=== PATIENT | male | born 1985 | race Caucasian/White ===

== ENCOUNTER 2016-10-09 22:32 | Inpatient (IN) | payer MEDICARE, OTHER ==
--- NOTE | ~2016-10-09 | DS ---
Unit #: [id number] #: [id number] Patient: NATHALY IVERSON [id number] [address] [address] [id number] I MR#: [id number] NAME: NATHALY IVERSON ROOM: 201 Age: 30 Sex: M Admission Date: 10/10/2016 : 1985 Discharge Date: 10/10/2016 Attending Physician: Iza Kimble M.D. Primary Care Physician: Primary Care Physician No DISCHARGE SUMMARY DISCHARGE DIAGNOSES 1. Type 1 diabetes, uncontrolled likely due to noncompliance, but the patient states that he ran out of insulin 3 days prior to admission. The patient's A1c reveals to be 11.8. 2. Suicidal ideation, was discharged to [facility] for continuing care. 3. Polysubstance abuse namely heroin, as well as alcohol. 4. History of hepatitis C. CONSULTANTS Dr. Clements and SANDRA. PROCEDURES None. DIAGNOSTIC STUDIES IMAGING STUDIES: None. LABORATORY RESULTS: On the day of discharge, the patient's lab includes a BMP; glucose of 174, BUN 13, creatinine 0.7. Sodium 133, potassium 3.4, chloride 102, CO2 of 26, calcium 8.1, magnesium 1.8, total protein 7.1, albumin 3.6, total bilirubin 1.1, AST 77, ALT 82, alkaline phosphatase 125. Alcohol was undetectable on admission. CBC with WBC of 5.6, RBC of 4.57, hemoglobin was 12.3, hematocrit was 37.9, MCV was 83, MCH was 27, MCHC was 32.5, RDW was 14, platelets was 192, MVP was 8.8. HOSPITAL COURSE The patient is a 30-year-old man with past medical history of type 1 diabetes, heroin abuse, suicidal ideation and attempt 2 years ago, as well as peripheral neuropathy, hepatitis C, who presents to [facility] after he ran out of insulin about 3 days prior to admission. He was brought to the emergency department later evening with a serum glucose of 480, was given 2 L of saline. The patient does admit to having suicidal ideation. The patient states that he administers insulin daily and he tells me that he use Levemir, Lantus 40 units b.i.d. as well as sliding scale insulin prior to meal. The patient tells me that he has lost his daughter 2 years ago, had an attempt of suicide at that time and tries to self-medicate with drugs and alcohol. At this time, he denies homicidal ideation, but admits to suicidal ideation, had no plan. The following day, the patient was given 15 units of subcutaneous Levemir. The following day, his serum glucose had slowly reduced to 200. Fasting glucose was 50 units. At last hospitalization, when the patient was admitted with uncontrolled diabetes, Dr. Roblero of Endocrinology was Unit #: [id number] #: [id number] Patient: NATHALY IVERSON. At that time, the patient was receiving long-acting insulin with Lantus 15 units subcutaneously b.i.d. and a short-acting insulin with 2 units with meals and half of a sliding scale insulin. The patient's blood sugars appear to have been stable at that time. Therefore, I thought that it was a good idea for the patient to be discharged with the same recommendations long-acting of Lantus 15 units subcutaneously b.i.d., 5 units of insulin short-acting NovoLog with meals as well as a sliding scale insulin and the patient was seen in consultation with Dr. Clements as well as AP was asked to evaluate the patient for admission there for his continuing suicidal ideation. The patient was placed on 72-hour hold due to suicidal ideation and the patient was assessed and accepted in [facility]. Discharge diet and discharge condition is stable. DISCHARGE MEDICATIONS Include Celexa 20 mg orally daily, NovoLog 5 units subcutaneously with meals, as well as low-dose sliding scale insulin prior to meals and at bedtime, multivitamin one tablet orally daily, thiamine 200 mg orally daily, folic acid 1 mg orally daily, Neurontin 600 mg every 6 hours as needed for pain, Lantus 15 units subcutaneously b.i.d. Dictated by... Briana Goncalves PA-C for Felice Mccollum/shiela TD: 10/12/2016 09:40 JOB #: [id number] DISCHARGE SUMMARY Page 1 of 1 X X DISCHARGE SUMMARY
--- NOTE | ~2016-10-09 | HP ---
Unit #: [id number] #: [id number] Patient: NATHALY IVERSON [id number] [address] [address] [id number] I MR#: [id number] NAME: NATHALY IVERSON ROOM: 51761 Age: 30 Sex: M Admission Date: 10/10/2016 : 1985 Attending Physician: Colette Marcial M.D. Primary Care Physician: No Primary Care Physician HISTORY AND PHYSICAL REVISED REPORT CHIEF COMPLAINT Uncontrolled type 1 diabetes mellitus, heroin abuse, and suicidal ideation. History this 30-year-old type 1 diabetic male who abuses heroin with history of peripheral neuropathy, and hepatitis C, is admitted for uncontrolled diabetes. Patient states that he ran out of his insulin about 2 1/2 days ago. He was brought to this emergency department late last evening, with a serum glucose of 480. He was bolused with 2 L of saline. He is a very poor historian as he drifts off to sleep and I have to prompt him several times to answer my questions. He admits to suicidal ideation, but without a plan. A sitter currently is in the room. States that he injects insulin on a daily basis using clean needles. PAST MEDICAL HISTORY 1. Type 1 diabetes mellitus since age 2, associated with peripheral neuropathy. 2. Hepatitis C positive. 3. IV heroin abuse with negative HIV testing last summer. 4. Admission 08/24/2016 for diabetic ketoacidosis. 5. Appendectomy. ALLERGIES No known drug allergies. HOME MEDICATIONS Patient states that he injects Lantus 40 units subcu b.i.d. along with sliding scale Humalog. When he was last admitted to this facility in 08/2016, his insulin at that time was changed to Levemir 15 units subcu q.h.s. and NovoLog 5 units t.i.d. with meals. FAMILY HISTORY Diabetes mellitus. SOCIAL HISTORY The patient is homeless. He injects heroin using clean needles. He smokes 2 packs per day of tobacco, and does not drink alcohol. Occasionally uses other substances including methamphetamines. REVIEW OF SYSTEMS Impossible to obtain as patient is somnolent and I have to arouse him several times. Unit #: [id number] #: [id number] Patient: NATHALY IVERSON PHYSICAL EXAMINATION GENERAL: Thin 39-year-old unkempt appearing male currently in no acute distress. VITAL SIGNS: Temperature 98.2, pulse 102, respirations 12, blood pressure 128/71, O2 saturations 98% on room air. HEENT: Eyes - PERRLA. Extraocular muscles are intact. Pharynx is benign. NECK: Supple without adenopathy or thyromegaly. CHEST: Clear. CARDIAC: Normal S1 and S2 without S3, S4 or murmur. ABDOMEN: Bowel sounds are present. No hepatosplenomegaly, tenderness, or masses. EXTREMITIES: Without edema. Pedal pulses are present. SKIN: Reveals various superficial wounds and excoriations. Multiple tattoos. No abscesses that I can see. Patient does have track santana over his upper extremities. No splinter hemorrhages over the fingernail beds. NEUROLOGIC: Patient is somnolent but arousable. His cranial nerves are intact. Equal strength throughout. DIAGNOSTIC STUDIES ADMISSION LABS: Hematocrit is 36.5, normal white count and platelet count. SMA 12 - glucose is 480, sodium 127, potassium 3.4, chloride 90, AST 77, ALT 82, alk phos 125. BHOB 0.60. Alcohol negative. Urine tox screen positive for benzos, amphetamines, marijuana, opiates. Urinalysis - trace protein, positive glucose without significant white or red cells. ASSESSMENT 1. Uncontrolled type 1 diabetes mellitus. Patient ran out of his insulin. 2. Polysubstance abuse but mainly heroin. 3. Suicidal ideation. 4. Hepatitis C. PLANS 1. IV fluids and glucose control. 2. Check hemoglobin A1c. 3. Medications for heroin withdrawal. 4. 72 hours hold with one-to-one sitter. 5. Recheck labs in the morning. 6. [facility] to consult in the morning. 7. Bactroban to various wounds. 1. Dictated by Felice Abad/elizabeth TD: 10/10/2016 06:30 JOB #: [id number] CC: Delmy/invision Please Delete Unit #: [id number] #: [id number] Patient: NATHALY IVERSON HISTORY AND PHYSICAL Page 1 of 1 X Colette Marcial MD HISTORY AND PHYSICAL
[~2016-10-09 22:32] MED LIST: ACETAMINOPHEN PO; ACETAMINOPHEN325 MG PO; ADDERALL XR10 MG PO; AL-MAG HYDROX-S30 M1 PO; DOXEPIN HCL25 MG PO; FLEXERIL10 MG PO; HUMALOG100 U/M1; HUMALOG100 U/M2 SUBQ; HUMALOG100 U/ML; HUMALOG100 U/ML SUBQ; HYDROCODON-ACE1 EACH PO; KLONOPIN0.5 MG PO; KLONOPIN1 MG PO; LANTUS100 U/ML; LANTUS100 U/ML SUBQ; LANTUS100 UNITS/ SUBQ; LEVEMIR100 UNITS/ SUBQ; LORTAB 5/500 TA1 TA1 PO; MOTRIN400 M1 PO; NEURONTIN300 MG PO; NEURONTIN800 MG PO; NO MEDICATIONS; NOVOLOG100 U/ML; NOVOLOG100 U/ML SUBQ; ORUDIS75 M1 DOB; ORUDIS75 M1 PO; REQUIP2 MG PO; TESSALON PERLE100 M1 PO; THERAPEUTIC FOR1 TA1 PO; TYLENOL #3 PO; ULTRAM PO; ZOFRAN ODT4 MG PO
[2016-10-09 22:55] LABS: BASOPHIL% 0.3 % (0-2.5); EOSINOPHIL# 0.1 X10e3 (0-0.7); EOSINOPHIL% 0.9 % (0.0-7.0); HEMATOCRIT 36.5 % (38.0-50.0); HEMOGLOBIN 11.7 gm/dL (13.0-16.0); LYMPHOCYTE# 1.6 X10e3 (1.0-3.5); LYMPHOCYTE% 28.6 % (17.0-45.0); MEAN CELL VOLUME 84.7 FL (83-96); MEAN CORPUSCULAR HEMOGLOBIN 27.1 PG (28-34); MEAN PLATELET VOLUME 9.2 FL (6.5-11.5); MONOCYTE# 0.5 X10e3 (0-1.0); MONOCYTE% 8.4 % (3.0-12.0); NEUTROPHIL# 3.5 X10e3 (1.5-7.1); NEUTROPHIL% 61.8 % (40-75); PLATELET COUNT 188 X10e3 (140-420); RED BLOOD COUNT 4.31 X10e (3.90-5.60); WHITE BLOOD COUNT 5.6 X10e3 (4.0-10.5)
[2016-10-09 22:56] LABS: DIFF IND NO
[2016-10-09 23:22] LABS: ALBUMIN SERUM 3.6 g/dL (3.5-5.0); ALCOHOL BLOOD <5 mg/dL (0); ALKALINE PHOSPHATASE 125 U/L (32-92); ALT (SGPT) 82 U/L (10-40); AST (SGOT) 77 U/L (10-42); BILIRUBIN, DIRECT 0.2 mg/dL (0.0-0.2); BILIRUBIN,INDIRECT 0.9 mg/dL (0.0-0.9); BILIRUBIN,TOTAL 1.1 mg/dL (0.2-2.0); BLOOD UREA NITROGEN 19 mg/dL (9-23); CALCIUM SERUM 8.5 mg/dL (8.4-10.2); CARBON DIOXIDE 27 mmol/L (22-31); CHLORIDE 90 mmol/L (100-111); GLOM FILT RATE Estimated ABOVE60 mL/min (>60); GLUCOSE FASTING 480 mg/dL (70-110); POTASSIUM 3.4 mmol/L (3.5-5.1); PROTEIN TOTAL SERUM 7.1 g/dL (6.0-8.3); SODIUM 127 mmol/L (135-145)
[2016-10-09] MEDS ORDERED: IBUPROFEN800 MG PO (23:49)
[2016-10-10 00:51] LABS: URINE SOURCE CLEAN CATCH
[2016-10-10 00:57] LABS: URINE APPEARANCE CLEAR; URINE BILIRUBIN NEG (NEG); URINE BLOOD NEG (NEG); URINE COLOR YELLOW; URINE GLUCOSE >1000 MG/DL (NEG); URINE KETONE TRACE (NEG); URINE LEUKOCYTE ESTERASE NEG (NEG); URINE NITRATE NEG (NEG); URINE PH 5.5 (5-8); URINE PROTEIN TRACE (NEG); URINE SPECIFIC GRAVITY 1.024 (1.003-1.035)
[2016-10-10 01:02] LABS: CULTURE INDICATED? NO
[2016-10-10 01:09] LABS: AMPHETAMINE POS (NEG); BARBITURATES NEG (NEG); BENZODIAZEPINES POS (NEG); COCAINE NEG (NEG); MARIJUANA POS (NEG); OPIATES POS (NEG); TRICYCLIC ANTIDEPRESSANTS NEG (NEG); U METHADONE NEG (NEG)
[2016-10-10 05:49] LABS: BASOPHIL% 0.4 % (0-2.5); EOSINOPHIL# 0.1 X10e3 (0-0.7); EOSINOPHIL% 2.2 % (0.0-7.0); HEMATOCRIT 37.9 % (38.0-50.0); HEMOGLOBIN 12.3 gm/dL (13.0-16.0); LYMPHOCYTE# 2.3 X10e3 (1.0-3.5); LYMPHOCYTE% 41.6 % (17.0-45.0); MEAN CORPUSCULAR HGB CONC 32.5 g/dL (30-36); MEAN PLATELET VOLUME 8.8 FL (6.5-11.5); MONOCYTE# 0.5 X10e3 (0-1.0); MONOCYTE% 9.3 % (3.0-12.0); NEUTROPHIL# 2.6 X10e3 (1.5-7.1); NEUTROPHIL% 46.5 % (40-75); PLATELET COUNT 192 X10e3 (140-420); RED BLOOD COUNT 4.57 X10e (3.90-5.60); WHITE BLOOD COUNT 5.6 X10e3 (4.0-10.5)
[2016-10-10 05:57] LABS: DIFF IND NO
[2016-10-10 06:14] LABS: BLOOD UREA NITROGEN 13 mg/dL (9-23); BUN/CREATININE RATIO 18.57; CALCIUM SERUM 8.1 mg/dL (8.4-10.2); CARBON DIOXIDE 26 mmol/L (22-31); CHLORIDE 102 mmol/L (100-111); CREATININE SERUM 0.7 mg/dL (0.6-1.4); GLOM FILT RATE Estimated ABOVE60 mL/min (>60); GLUCOSE FASTING 174 mg/dL (70-110); MAGNESIUM 1.8 mg/dL (1.6-3.0); POTASSIUM 3.4 mmol/L (3.5-5.1); SODIUM 133 mmol/L (135-145)
== END 2016-10-10 19:25 | DRG 638 ==
LOC: CED 22:32 → CEDOF 10-10 01:40 → C2A 10-10 12:06
PROVIDERS: Emergency Medicine; Internal Medicine
DX: E10.65 Type 1 diabetes mellitus with hyperglycemia (principal); R45.851 Suicidal ideations; E10.42 Type 1 diabetes mellitus with diabetic polyneuropathy; Z79.4 Long term (current) use of insulin; F11.10 Opioid abuse, uncomplicated; B19.20 Unspecified viral hepatitis C without hepatic coma; F17.210 Nicotine dependence, cigarettes, uncomplicated; F15.90 Other stimulant use, unspecified, uncomplicated; F32.9 Major depressive disorder, single episode, unspecified; J44.9 Chronic obstructive pulmonary disease, unspecified; Z91.14 Patient's other noncompliance with medication regimen; Z59.0 Homelessness
CPT/HCPCS: 36415; 80048; 80076; 80307; 81003; 82010; 82947; 83036; 83735; 85025; 96360; 99285; G0480; J1815

== ENCOUNTER 2016-10-10 20:27 | Inpatient (IN) | payer MEDICARE, OTHER ==
--- NOTE | ~2016-10-10 | PN ---
Unit #: [id number] #: [id number] Patient: NATHALY JOHNSON [id number] [facility] [address] [place] [address] [id number] I MR#: [id number] NAME: NATHALY JOHNSON ROOM: [facility] Age: 30 Sex: M Admission Date: 10/10/2016 : 1985 Attending Physician: Gela Saunders M.D. Admitting Physician: Gela Saunders M.D. Primary Care Physician: Primary Care Physician Blanca PENN PROGRESS NOTES DATE OF SERVICE: 10/16/2016 SUBJECTIVE Mr. Johnson is a 30-year-old white male, who was seen today and chart was reviewed, and case was discussed with the staff. He reports doing much better, appears to be coming out of the detox without any complications. He was polite and pleasant, interacting, and socializing and will be able to go to rehab level of care tomorrow. MENTAL STATUS EXAMINATION Young white male, who was casually dressed with fair personal hygiene, appears to be in no acute distress or discomfort. He was awake and alert on interaction with intact orientation. His mood was anxious with a congruent affect. He denies any suicidal or homicidal ideation and also denies any auditory or visual hallucinations. His insight and judgment remain slightly impaired. TREATMENT PLAN 1. We will continue on his current medications treatment protocol. We will monitor response and make further adjustments as needed. 2. We will continue to follow up. Dictated by... Felice Del Angel/shiela TD: 10/18/2016 05:56 JOB #: [id number] [facility] PROGRESS NOTES Page 1 of 1 X Gela Saunders MD PROGRESS NOTE
--- NOTE | ~2016-10-10 | PN ---
Unit #: [id number] #: [id number] Patient: NATHALY JOHNSON [id number] [facility] [address] [place] [address] [id number] I MR#: [id number] NAME: NATHALY JOHNSON ROOM: [facility] Age: 30 Sex: M Admission Date: 10/10/2016 : 1985 Attending Physician: Gela Saunders M.D. Admitting Physician: Felice Del Angel PROGRESS NOTES DATE OF SERVICE: 10/14/2016 SUBJECTIVE Mr. Johnson is a 30-year-old white male with substance abuse and mood disorder, who was seen today and chart was reviewed, and case was discussed with the staff. He still has been detoxing. His blood pressure was high along with an elevated heart rate, and his Ativan has been tapered off, he still has been receiving it and actually he has been asking for the dosage to be increased again. Meanwhile, he has been compliant with treatment recommendations. MENTAL STATUS EXAMINATION Young white male, who was casually dressed with fair personal hygiene, appears to be in no acute distress or discomfort. He was awake and alert with intact orientation. His mood was anxious with a congruent affect. He denies any suicidal or homicidal ideations. His insight and judgment remain slightly impaired. TREATMENT PLAN 1. We will continue him on his current medications and treatment protocol. We will monitor his response and make further adjustments as needed. 2. We will continue to follow up. Dictated by... Felice Del Angel/shiela TD: 10/14/2016 09:00 JOB #: [id number] Unit #: [id number] #: [id number] Patient: NATHALY JOHNSON PROGRESS NOTES Page 1 of 1 X Gela Saunders MD PROGRESS NOTE
--- NOTE | ~2016-10-10 | PN ---
Unit #: [id number] #: [id number] Patient: NATHALY JOHNSON [id number] [facility] [address] [place] [address] [id number] I MR#: [id number] NAME: NATHALY JOHNSON ROOM: [facility] Age: 30 Sex: M Admission Date: 10/10/2016 : 1985 Attending Physician: Gela Saunders M.D. Admitting Physician: Gela Saunders M.D. Primary Care Physician: Primary Care Physician Blanca PENN PROGRESS NOTES DATE 10/15/2016 DISCUSSION Mr. Johnson is a 30-year-old white male who was seen today and chart was reviewed. His case was discussed with the staff. He appears to be doing fairly well and has been able to come out of his room and socialize and interact and go to therapy. He states that he is planning to go to [facility] for chemical dependency rehab level of care. His blood pressure however was still high as of yesterday and this morning and he was doing his Ativan dosage is being tapered down. He still has been needing some dosage to keep his detox symptoms at bay. Meanwhile, he has not shown any agitation or aggression and has been rather cooperative with treatment recommendation and appears to be showing significant improvement in his mood and behavior. MENTAL STATUS EXAMINATION Young white male, who was casually dressed with fair personal hygiene, appears to be in no acute distress or discomfort. He was awake and alert on interaction with intact orientation. His mood was anxious with a congruent affect. He denies any suicidal or homicidal ideations and also denies any auditory or visual hallucinations. His insight and judgment remain slightly impaired. TREATMENT PLAN 1. We will continue him on his current medications and treatment protocol. We will monitor his response and we will make further adjustments as needed. 2. We will continue to follow up. Dictated by... Gela Saunders M.D. IAA/mamie TD: 10/16/2016 08:14 JOB #: [id number] Unit #: [id number] #: [id number] Patient: NATHALY JOHNSON PROGRESS NOTES Page 1 of 1 X Chip,Gela ZUNIGA X PROGRESS NOTE
--- NOTE | ~2016-10-10 | CO ---
Unit #: [id number] #: [id number] Patient: NATHALY IVERSON [id number] [place] [address] [id number] I MR#: [id number] NAME: NATHALY IVERSON ROOM: [facility] Age: 30 Sex: M Admission Date: 10/10/2016 : 1985 Attending Physician: Gela Saunders M.D. Primary Care Physician: Primary Care Physician No Consultation Date: 10/11/2016 CONSULTATION REPORT ROSEY Trujillo is a 30-year-old with history of insulin-dependent diabetes mellitus. He is noncompliant with most if not all of his medications. He was recently admitted to [facility], where he was treated for his uncontrolled diabetes. H and P from [facility] dated 10/10/2016 was reviewed. We will continue Levemir at 18 units q.h.s., NovoLog sliding scale. No concentrated sweet diet and Accu-Cheks a.c. and h.s. Levemir will be adjusted accordingly. Dictated by... Keeley Chau P.A.-C. for Felice Mccollum/shiela TD: 10/13/2016 03:26 JOB #: [id number] CONSULTATION REPORT Page 1 of 1 X Keeley Chau CONSULTATION REPORT
--- NOTE | ~2016-10-10 | PN ---
Unit #: [id number] #: [id number] Patient: NATHALY JOHNSON [id number] [facility] [address] [place] [address] [id number] I MR#: [id number] NAME: NATHALY JOHNSON ROOM: [facility] Age: 30 Sex: M Admission Date: 10/10/2016 : 1985 Attending Physician: Gela Saunders M.D. Admitting Physician: Gela Saunders M.D. Primary Care Physician: Primary Care Physician Blacna DE [place] NOTES DATE OF SERVICE 10/12/2016 DISCUSSION Mr. Johnson is a 30-year-old white male with mood disorder and substance abuse who was seen today. Chart was reviewed and case was discussed with the staff. He was seen to be anxious, restless, withdrawn, unkempt, disheveled, and disorganized, and in distress and discomfort as he has been complaining of pain all over his body and has sores and skin lesions all over his forehead and his arms. He has been picking on himself and has been complaining of pain as well as being in distress and discomfort. He has been compliant with the treatment recommendations and has been taking the medications and tolerating them fairly well with no reported side effects. MENTAL STATUS EXAMINATION Young white male who is casually dressed with marginal personal hygiene. His mood is anxious with congruent affect. His speech is slow and restricted in content. His thought processes were disorganized with some looseness of associations and flight of ideas and suicidal ideations. His insight and judgment remain significantly impaired. TREATMENT PLAN 1. We will continue him on his current medications and treatment protocol. We will monitor his response and make further adjustments as needed. 2. We will continue to follow up. Dictated by... Felice Del Angel/leo TD: 10/12/2016 10:08 JOB #: [id number] Unit #: [id number] #: [id number] Patient: NATHALY JOHNSON PROGRESS NOTES Page 1 of 1 X Gela Saunders MD X PROGRESS NOTE
--- NOTE | ~2016-10-10 | HP ---
Unit #: [id number] #: [id number] Patient: RONNIE IVERSON [id number] [facility] [address] [place] [address] [id number] I MR#: [id number] NAME: RONNIE IVERSON ROOM: [facility] Age: 30 Sex: M Admission Date: 10/10/2016 : 1985 Attending Physician: Gela Saunders M.D. Admitting Physician: Gela Saunders M.D. Primary Care Physician: Primary Care Physician No HISTORY AND PHYSICAL Ronnie is a 30 year old admitted to [facility] because of his continued drug use. He was recently admitted and discharged from [facility] where he was treated for his uncontrolled type 1 diabetes. Patient was seen and H and P from [facility] dated 10/10/16 was reviewed. This is current. No changes. Please see H and P dated 10/10/16. Dictated by... Liz HorowitzANeelima. for Felice Mccollum/ofelia TD: 10/11/2016 19:53 JOB #: [id number] HISTORY AND PHYSICAL Page 1 of X Keeley Chau HISTORY AND PHYSICAL
--- NOTE | ~2016-10-10 | DS ---
Unit #: [id number] #: [id number] [facility]: [facility] [id number] [facility] [address] [place] [address] [id number] I MR#: [id number] NAME: NATHALY IVERSON ROOM: [facility] Age: 30 Sex: M Admission Date: 10/10/2016 : 1985 Discharge Date: 10/17/2016 Attending Physician: Gela Saunders M.D. Primary Care Physician: Primary Care Physician No DISCHARGE SUMMARY IDENTIFYING DATA Mr. Zhang is a 30-year-old single white male who is a resident of [place], [place] and was transferred to us from [place]. DISCHARGE DIAGNOSES Psychiatric: Major depressive disorder, recurrent, moderate, without psychotic features; opioid dependence, moderate and acute withdrawals; alcohol dependence, moderate and acute withdrawals; benzodiazepine dependence, moderate and acute withdrawals. Medical: Diabetes mellitus. Stressors: Moderate psychosocial stressors. HISTORY OF PRESENT ILLNESS Please see initial psychiatric evaluation for details. PAST PSYCHIATRIC HISTORY Please see initial psychiatric evaluation for details. PAST MEDICAL HISTORY Please see initial psychiatric evaluation for details. HOSPITAL COURSE The patient was admitted to the adult chemical dependency and psychiatric unit at [facility] philomena Lilly and was oriented to the hospital environment. Routine p.r.n. medications were initiated, and he was started back on his home medications and alcohol detox protocol was initiated as well and was closely monitored. He was taking the medications regularly and was tolerating them fairly well and was able to show a decent therapeutic response with significant improvement in his depression and anxiety, and mood disorder, and was able to come out of the detox as well as and was wanting to go home, and was willing to continue treatment on an outpatient basis. DISCHARGE MEDICATIONS Seroquel 100 mg at bedtime for depression, Celexa 20 mg a day for depression, and Strattera 40 mg in the morning for ADHD. DISCHARGE CONDITION Stable. PROGNOSIS Fair. Unit #: [id number] #: [id number] Patient: NATHALY IVERSON Dictated by... Felice Del Angel/javierl TD: 10/17/2016 19:42 JOB #: [id number] DISCHARGE SUMMARY Page 1 of 1 X Gela Saunders MD DISCHARGE SUMMARY
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
--- NOTE | ~2016-10-10 | CO ---
Unit #: [id number] #: [id number] Patient: RONNIE IVERSON [id number] [facility] [address] [place] [address] [id number] I MR#: [id number] NAME: RONNIE IVERSON ROOM: [facility] Age: 30 Sex: M Admission Date: 10/10/2016 : 1985 Attending Physician: Gela Saunders M.D. Consultation Date: 10/12/2016 CONSULTATION REPORT SUBJECTIVE Ronnie is a 30-year-old, admitted to [facility] because of his continued abuse of opioids. He has reported some pain in his lower back and knees. He denies any recent injuries. PLAN I spoke with Ronnie about this. He knows he has p.r.n. Motrin ordered for any discomfort. No plans to add any anything else for pain to include Ultram. Dictated by... Keeley Chau P.A.-C. for Felice Mccollum/shiela TD: 10/14/2016 07:34 JOB #: [id number] CONSULTATION REPORT Page 1 of 1 X Keeley Chau CONSULTATION REPORT
--- NOTE | ~2016-10-10 | PN ---
Unit #: [id number] #: [id number] Patient: NATHALY JOHNSON [id number] [facility] [address] [place] [address] [id number] I MR#: [id number] NAME: NATHALY JOHNSON ROOM: [facility] Age: 30 Sex: M Admission Date: 10/10/2016 : 1985 Attending Physician: Gela Saunders M.D. Admitting Physician: Gela Saunders M.D. Primary Care Physician: Primary Care Physician Blanca DE LOS SANTOS NOTES DATE October 13, 2016 DISCUSSION Mr. Johnson is a 30-year-old white male, with substance abuse and mood disorder, who was seen today and chart was reviewed and the case was discussed with the staff. He has been anxious, withdrawn, but has not shown any agitation or irritability and has been rather seclusive to himself. Meanwhile, he has been taking the medications and tolerating them fairly well with no reported side effects. MENTAL STATUS EXAMINATION Young white male, who was casually dressed with fair personal hygiene and appears to be in no acute distress or discomfort. He was awake and alert on interaction with intact orientation. His mood is anxious with a congruent affect. He denies any suicidal or homicidal ideations. His insight and judgment remain slightly impaired. TREATMENT PLAN 1. We will continue him on his current medications and treatment protocol, and will monitor his response to the medications, and make further adjustments as needed. 2. We will continue to followup. Dictated by... Felice Del Angel/nitish TD: 10/14/2016 06:24 JOB #: [id number] Unit #: [id number] #: [id number] Patient: NATHALY JOHNSONGEOVANY PROGRESS NOTES Page 1 of 1 X Gela Saunders MD PROGRESS NOTE
[~2016-10-10 20:27] MED LIST changes: +IBUPROFEN800 MG PO
[2016-10-15 12:08] LABS: URINE APPEARANCE CLEAR; URINE BILIRUBIN NEG (NEG); URINE BLOOD NEG (NEG); URINE COLOR YELLOW; URINE GLUCOSE >1000 MG/DL (NEG); URINE KETONE NEG (NEG); URINE LEUKOCYTE ESTERASE NEG (NEG); URINE NITRATE NEG (NEG); URINE PROTEIN NEG (NEG); URINE SPECIFIC GRAVITY 1.026 (1.003-1.035); URINE UROBILINOGEN 0.2 MG/DL (NEG)
[2016-10-16 23:41] LABS: POC - CKMB <1.0 ng/mL (0.0-7.9); POC - TROPONIN <0.05 ng/mL (<=0.05)
== END 2016-10-17 10:20 | disposition home or self-care (01) | DRG 885 ==
LOC: P1E 20:27
PROVIDERS: Psychiatry & Neurology Psychiatry
PROC: HZ2ZZZZ Detoxification Services for Substance Abuse Treatment (ICD-10-PCS; principal; 2016-10-10)
DX: F33.1 Major depressive disorder, recurrent, moderate (principal); E11.9 Type 2 diabetes mellitus without complications; F10.239 Alcohol dependence with withdrawal, unspecified; F11.23 Opioid dependence with withdrawal; F13.239 Sedative, hypnotic or anxiolytic dependence with withdrawal, unspecified; Z79.4 Long term (current) use of insulin
CPT/HCPCS: 36415; 71010; 80048; 80053; 80076; 80307; 81003; 82010; 82553; 82947; 83036; 83735; 84484; 85025; 85379; 86592; 93005; 96360; 96361; 96374; 96375; 99284; 99285; G0480; J1815; J1885

== ENCOUNTER 2016-11-03 18:10 | Inpatient (IN) | payer MEDICARE, OTHER ==
--- NOTE | ~2016-11-03 | EKG ---
PATIENT: NATHALY IVERSON UNIT #: [id number] Ventricular Rate: 133 BPM Atrial Rate: 133 BPM P-R Interval: 128 ms QRS Duration: 94 ms Q-T Interval: 304 ms QTC Calculation(Bezet): 452 ms P [place]: 70 degrees Calculated R [place]: 105 degrees Calculated T [place]: 26 degrees Diagnosis Line: Sinus tachycardia Diagnosis Line: Right atrial enlargement Diagnosis Line: Rightward axis Diagnosis Line: Borderline ECG Diagnosis Line: When compared with ECG of 16-OCT-2016 16:30, Diagnosis Line: QRS axis Shifted right Diagnosis Line: consider HYPERKALEMIA Diagnosis Line: Confirmed by SHI ESCOTO MD ([id number]) on 11/04/2016 Diagnosis Line: 6:22:04 AM INTERPRETING MD: JEVON ZUNIGA
--- NOTE | ~2016-11-03 | CO ---
Unit #: [id number] #: [id number] Patient: RONNIE JOHNSON [id number] [address] [address] [id number] I MR#: [id number] NAME: RONNIE JOHNSON ROOM: 230 Age: 30 Sex: M Admission Date: 11/03/2016 : 1985 Attending Physician: Munira Mei M.D. Consultation Date: 11/04/2016 CONSULTATION REPORT REASON FOR CONSULTATION Heroin, alcohol, Xanax abuse withdrawal symptoms. HISTORY OF PRESENT ILLNESS Mr. Ronnie Johnson is a 30-year-old male, seen in CCU-3, bed 23 on 11/04/2016. The patient was receiving IV, lying comfortably in bed, dressed in hospital attire. The patient was anxious, nervous, sad, depressed. Reported having withdrawals from drugs. The patient reported he was using heroin, alcohol, Xanax. The patient reported restlessness of his legs, anxiety, trouble sleeping. The patient reported hand tremors, mood lability, but denied any suicidal or homicidal ideation. Denied any psychotic symptom. PAST PSYCHIATRIC HISTORY Remarkable for history of substance abuse as mentioned above. The patient has a history of previous treatment at [facility], history of major depressive disorder, history of alcohol dependence, benzodiazepine abuse. The patient was admitted in 09/2016. History of diabetes mellitus. The patient was admitted in [facility]. History of neuropathy, hepatitis C, polysubstance abuse, history of ADHD by history. MEDICATION HISTORY The patient is on Seroquel 100 mg at bedtime, Celexa 20 mg daily, Strattera 40 mg daily, Lantus 13 units b.i.d., sliding scale. FAMILY HISTORY AND SOCIAL HISTORY The patient reports poor support from the family. History of abuse. History of substance abuse as mentioned above. REVIEW OF SYSTEMS Complete review of systems is remarkable for as mentioned above, anxiety, mood lability, restlessness of his legs. MENTAL STATUS EXAMINATION General appearance; the patient dressed casually in hospital attire. Attention span and concentration, poor. The patient's vital signs; temperature is 97.8, pulse 133, respirations 18, blood pressure is 150/81. Speech, regular rate. Oriented in time, place, and person. Mood and affect were labile. Thought process, circumstantial. Thought content; the patient denied any thoughts of harming self or others or any psychotic symptom. Recent and remote memory, poor. Fund of knowledge, fair. Insight and judgment, fair to slightly impaired. DIAGNOSES Unit #: [id number] #: [id number] Patient: RONNIE JOHNSON Psychiatric: Sedative-hypnotic use disorder, severe, F13.20; opioid use disorder, severe, F11.20; alcohol use disorder, severe, F10.20; major depressive disorder, recurrent, severe, F33.2. Secondary diagnosis: Deferred. Medical diagnosis: Please refer to H and P. Stressors: Psychosocial stressors. ASSESSMENT/PLAN 1. Supportive psychotherapy and psychoeducation provided to the patient. 2. Educated about benefits and side effects of medication and course and prognosis of illness. 3. Advised to start the patient on Vistaril 25 mg t.i.d. for anxiety, Requip 1 mg at bedtime for restless legs, Neurontin 300 mg t.i.d. for anxiety and withdrawal symptoms, trazodone 50 mg q.h.s. p.r.n. for sleep. We will continue to follow and gradually resume the patient's medication, Seroquel and Celexa. Please feel free to call if any questions, telephone #[phone]. Dictated by... Felice Hinojosa/shiela TD: 11/05/2016 05:05 JOB #: [id number] CONSULTATION REPORT Page 1 of 1 X Richie Clements MD X CONSULTATION REPORT
--- NOTE | ~2016-11-03 | CO ---
Unit #: [id number] #: [id number] Patient: NATHALY IVERSON [id number] [address] [place], [place] [address] [id number] I MR#: [id number] NAME: NATHALY IVERSON ROOM: 230 Age: 30 Sex: M Admission Date: 11/03/2016 : 1985 Attending Physician: Munira Mei M.D. Consultation Date: 11/05/2016 CONSULTATION REPORT REASON FOR CONSULTATION Newly diagnosed HIV disease. HISTORY OF PRESENT ILLNESS This 30-year-old gentleman with a history of diabetes, hepatitis C, IV drug and alcohol abuse, who presented with DKA which has been treated and the patient is now out of ICU. During this admission, HIV test was performed which shows positive reactive antibodies for which ID was consulted. The patient is completely asymptomatic from HIV standpoint. He is IV drug user, but denies having any unprotected promiscuous, hetero or homosexuality. He denied any blood transfusion and does not know anybody who is HIV positive. He does not have multiple sexual partners. He is saying that he is monogamous with his girlfriend. He denied a history of previously diagnosed HIV disease. He denies any constitutional symptoms like recent weight loss, thrush, nausea, diarrhea, or anorexia. There is no headache or other symptom at this time. PAST MEDICAL HISTORY Diabetes, peripheral neuropathy, hepatitis C, polysubstance abuse including IV drug use, attention deficit hyperactivity disorder. PAST SURGICAL HISTORY Appendectomy. SOCIAL HISTORY He is homeless. He is IV drug user and daily drinker, smokes cigarettes. He denies any unprotected sex with prostitutes or men. FAMILY HISTORY Positive for diabetes. ALLERGIES None. HOME MEDICATIONS Seroquel, Celexa, Strattera, Lantus sliding scale. Medications in the hospital include Neurontin, Tylenol, NovoLog, Requip, Vistaril, Desyrel, folic acid, thiamine, Protonix, Ativan, Phenergan, loperamide, IV fluids, Folvite, and multivitamins. SYSTEMIC REVIEW As above. PHYSICAL EXAMINATION Unit #: [id number] #: [id number] Patient: NATHALY IVERSON GENERAL: Reveals a young white male, who is awake and alert, in no acute distress. VITAL SIGNS: Stable, temperature 99.2, heart rate 99, respirations 18, blood pressure 148/85, no fever was documented during this admission. SKIN: He has multiple skin scratches, but no definite cellulitis, boils, or carbuncles. HEENT: There is no thrush. NECK: Supple. There is no JVD. LUNGS: Clear. HEART: Sounds normal. ABDOMEN: Soft and nontender. There is no organomegaly or ascites. Bowel sounds normal. NEUROLOGIC: Nonfocal. DIAGNOSTIC STUDIES LABORATORY RESULTS: His HIV test done on 11/03/2016 was positive. His previous HIV test done in 03/22 was negative. Blood cultures are negative. Urine culture negative. Sodium 138, potassium 3, chloride 103, CO2 of 23, BUN 10, creatinine 0.7. AST 39, ALT 53, alkaline phosphatase 122, bilirubin 0.7. White count is 7.8, hematocrit 35.8, platelets 167. Urine drug screen positive for amphetamines, opiates, and TCA. Urinalysis; glucosuria, no UTI. IMAGING STUDIES: Chest x-ray, negative. IMPRESSION Newly diagnosed human immunodeficiency virus disease with positive antibody screen with the risk factor including IV drug use. RECOMMENDATIONS No treatment is necessary at this time. Post-test counseling was performed. The patient was advised to contact and inform his sexual partners and IV drug use partners of his diagnosis. We will check his CD4 count, HIV viral load, and HIV genotype and ask Decorating Instructor to make appointment with [address] [place] [address]. The patient was told also that if he is discharged before that he should contact [address] [place] [address] on his own and make an appointment and ask them to get his lab results from the [facility]. Post-test counseling was performed in detail, all his questions were answered. Dictated by... Felice Solares/shiela TD: 11/06/2016 01:26 JOB #: [id number] Unit #: [id number] #: [id number] Patient: NATHALY IVERSON CONSULTATION REPORT Page 1 of 1 X Сергей Mendes MD CONSULTATION REPORT
--- NOTE | ~2016-11-03 | CR72 ---
[facility] A Service of [facility] & [facility] RADIOLOGY TEXT RESULTS PATIENT: NATHALY IVERSON LOCATION: [facility] 230-01 : [birth year] UNIT #: [id number] AGE: [address]: Munira Mei MD SEX: M ORDER DR: [id number] [facility] [address] [facility]. [place], [place] [address] [id number] I MR#: [id number] Acc #: [id number] NAME: NATHALY IVERSON : 1985 SEX: M STUDY DATE/TIME: 11/03/2016 17:19 UNIT: [facility] ROOM: [address]1088 STUDY DESCRIPTION: CR Chest Single View Portable Attending Physician: Natalie Altman M.D. Ordering Physician: Jacob Kirk M.D. MEDICAL IMAGING REPORT This report is preliminary unless electronic signature is present EXAM Portable chest HISTORY Weakness, onset today. COMPARISON 10/15/2016. FINDINGS A single AP portable view of the chest shows both lungs to be clear. The heart is normal in size. The mediastinal contour is normal. No significant bone abnormalities are seen. IMPRESSION Normal portable chest. Dictated by... Nolberto Narayanan M.D. THIS IS AN ELECTRONICALLY VERIFIED REPORT Nolberto Narayanan M.D. at 11/04/2016 6:36 PM Nissa TD: 11/03/2016 22:00 JOB #: [id number] MEDICAL IMAGING REPORT Page 1 of 1 COPY
--- NOTE | ~2016-11-03 | HP ---
Unit #: [id number] #: [id number] Patient: NATHALY IVERSON [id number] [place], [place] [address] [id number] I MR#: [id number] NAME: NATHALY IVERSON ROOM: 90935 Age: 30 Sex: M Admission Date: 11/03/2016 : 1985 Attending Physician: Natalie Altman M.D. HISTORY AND PHYSICAL CHIEF COMPLAINT High blood sugar and high heart rate. HISTORY OF PRESENT ILLNESS The patient is a 30-year-old male with a past medical history of diabetes, hepatitis C, IV drug use, and alcohol abuse, who presented to the emergency department for evaluation of the above. The patient states that he has not been feeling well for three days. He states that he has had vomiting and diarrhea. He states that he ran out of insulin about three days ago. He typically takes Lantus 30 units b.i.d., as well as Humalog sliding scale. He states that he has had fever, as well as an occasionally productive cough. In the emergency department, pulse was 133 and blood pressure 150/81. Glucose was 854 on comprehensive metabolic panel with a bicarb of 9, potassium 6.5, and anion gap of 34. He was given two liters of normal saline. He was started on an insulin drip. Additionally, he was given 15 grams of Kayexalate, as well as an amp of calcium chloride. He is being admitted to [facility] for evaluation and further treatment. PAST MEDICAL HISTORY 1. Admission to [facility] October 10, 2016, for uncontrolled diabetes and suicidal ideations. [facility]. 2. Diabetes diagnosed at the age of [age] with associated peripheral neuropathy. 3. Hepatitis C. 4. Polysubstance abuse including IV drug use and alcohol. 5. Attention deficit hyperactivity disorder. PAST SURGICAL HISTORY Appendectomy. SOCIAL HISTORY The patient is currently homeless. He is an IV drug user. He is a daily drinker. He states that he drinks two pints daily. He smokes two packs of cigarettes daily. FAMILY HISTORY Notable for his father having diabetes. ALLERGIES Unit #: [id number] #: [id number] Patient: NATHALY IVERSON No known allergies. HOME MEDICATIONS Per the Discharge Summary from [facility] October 17, 2016, include: 1. Seroquel 100 mg at bedtime. 2. Celexa 20 mg daily. 3. Strattera 40 mg daily. 4. Lantus 30 units b.i.d. 5. Sliding scale of Humalog. REVIEW OF SYSTEMS A complete review of systems is negative except as indicated in the History of Present Illness. PHYSICAL EXAMINATION VITAL SIGNS: Temperature is 97.8, pulse 133, respirations 22, blood pressure 150/81, and oxygen saturation is 98% on room air. GENERAL: Patient is a male who is awake and alert. HEENT: Head is atraumatic. Mucous membranes are dry. NECK: Supple. Trachea is midline. CARDIOVASCULAR: Tachycardic in the 110s. LUNGS: Clear to auscultation bilaterally. Breathing is mildly labored with conversation. ABDOMEN: Soft and nontender with bowel sounds present in all four quadrants. EXTREMITIES: Nontender with no pedal edema. NEUROLOGIC: Patient is oriented x3. He is not sure of the month but knows it is 2016. PSYCHIATRIC: Patient demonstrates poor insight and judgment. SKIN: Patient has multiple tattoos. He also has multiple scattered abrasions. DIAGNOSTIC STUDIES LABORATORY: Complete blood count is essentially normal. Comprehensive metabolic panel notable for a sodium of 129 that corrects when glucose of 854 is accounted for, potassium 6.5, chloride 86, bicarb 9, anion gap 34, BUN and creatinine 28 and 1.8, respectively, AST and ALT are 61 and 106, respectively, and alkaline phosphatase is 202. Beta hydroxybutyrate is 12.37. IMAGING: Chest x-ray shows no acute abnormality. CARDIOLOGY: EKG showed sinus tachycardia with a rate of 133 beats per minute. ASSESSMENT The patient is a 30-year-old male with: 1. Diabetic ketoacidosis. The patient is currently on insulin drip. He has received two liters of normal saline. 2. Anion gap metabolic acidosis with an anion gap of 34. 3. Acute kidney injury. The patient's creatinine was 0.9 on October 16, 2016. It is 1.8 today. 4. Hyperkalemia. The patient is on insulin drip. He received 15 grams of Kayexalate, as well as an amp of calcium chloride. 5. Transaminitis secondary to hepatitis C. 6. Hepatitis C. 7. Polysubstance abuse including IV drug use. Unit #: [id number] #: [id number] Patient: NATHALY IVERSON 8. Alcohol abuse. The patient states that he drinks two pints of alcohol daily. 9. Tobacco abuse. PLAN 1. Admit to ICU. 2. N.p.o. 3. DKA protocol with insulin drip. 4. Check HIV and hepatitis panel. 5. Check magnesium level. 6. Alcohol withdrawal protocol. 7. Check urinalysis with culture and sensitivity. 8. Urine toxicology screen. 9. Blood alcohol level. 10. Consult Dr. Clements regarding polysubstance abuse. 11. P.r.n. Zofran. 12. Neuro checks. 13. Consult Chest Medicine regarding ICU admission. 14. Repeat labs in the morning including magnesium and phosphorus. 15. SCDs for DVT prophylaxis. 16. Protonix for GI prophylaxis since the patient will be in the ICU. 17. Additional workup and consultants based on above. Thirty-four (34) minutes critical care time spent in the care of this patient (7:10 to 7:44 p.m.). Dictated by Felice Jones/iona TD: 11/03/2016 20:54 JOB #: [id number] HISTORY AND PHYSICAL Page 1 of 1 X Natalie Altman MD X HISTORY AND PHYSICAL
--- NOTE | ~2016-11-03 | A ---
[facility] Nutrition Therapy DATE: 11/04/16 Patient: NATHALY IVERSON Physician: ALEC Address: [address] [place], [place] [address]SHAREE LUI Room/Bed: [address], Zip: [place] [address] Admit Date: 11/03/16 Date of : [birth year] Height: 5 8 Weight: 143 65 NUTRITIONAL ASSESSMENT: REASON: DKA, NPO in ICU 30 yo male admitted for DKA PMH: drug/alcohol abuse, Hep C, DM w/ peripheral neuropathy, ADHD, suicidal ideations Anthropometrics: Ht: 5'8" Wt: 65 kg (143#) BMI: 21.8 Labs: Na+ 132, K+ 3.3, AST 43, ALT 81, POC 113, Lip 10 Meds: Therapeutic formula, NaCl, Novolin, D5%, Phenergan, Zofran, Thiamine, Folvite, MVI I/O & Bowel function: 1195/0, last BM unknown Skin Integrity: Scabs (scattered, entire body), no edema noted Assessment: Chart reviewed, events noted. Pt is in ICU d/t DKA. Pt is currently NPO d/t DKA protocol w/ insulin drip. Pt is also on CIWA. Per medical records, pt is homeless. Pt reported no recent weight loss. Pt states he has an appetite and "wants to eat". Per previous nutritional assessment, pt received diabetic diet education last month. RD restaurant management internship provided written consistent carb diet education. RD emphasized importance of eating consistently throughout the day and watching portion sizes. Pt verbalized understanding, expect mild compliance. Pt reported no diet questions at this time. See recommendations below. Dx: Limited adherence to nutrition-related recommendations RT DX AEB need for diet education, elevated blood glucose levels. Intervention: 1. Diet education 2. Consistent carb diet Monitoring, Evaluation and Goals: 1. PO intake; consume >75% of meals 2. Labs; WNL: glucose 3. Weight; prevent unintentional weight loss Recommendations: 1. Once medically feasible, advance diet as tolerated to consistent carb. [facility] Nutrition Therapy DATE: 11/04/16 Patient: NATHALY IVERSON Physician: ALEC [facility] Room/Bed: [address], Zip: [place] [address] Admit Date: 11/03/16 Date of : [birth year] Height: 5 8 Weight: 143 65 2. Encourage compliance to consistent carb diet. 3. Reconsult RD if further diet education is needed/requested. RD will f/u per protocol. Pt is at mild-moderate nutritional risk. Respectfully, Ana Varma, Lip [employer] Fany Michael, SANIA, LD Food and Nutritional Services [facility] cc: client file
[2016-11-03 18:03] LABS: BASOPHIL% 0.3 % (0-2.5); DIFF IND NO; HEMATOCRIT 46.7 % (38.0-50.0); HEMOGLOBIN 14.2 gm/dL (13.0-16.0); LYMPHOCYTE# 2.8 X10e3 (1.0-3.5); LYMPHOCYTE% 27.5 % (17.0-45.0); MEAN CORPUSCULAR HEMOGLOBIN 26.7 PG (28-34); MEAN CORPUSCULAR HGB CONC 30.4 g/dL (30-36); MEAN PLATELET VOLUME 9.7 FL (6.5-11.5); MONOCYTE# 0.7 X10e3 (0-1.0); NEUTROPHIL# 6.7 X10e3 (1.5-7.1); NEUTROPHIL% 65.2 % (40-75); PLATELET COUNT 235 X10e3 (140-420); RED CELL DISTRIBUTION WIDTH 14.7 % (11.0-15.5); WHITE BLOOD COUNT 10.3 X10e3 (4.0-10.5)
[2016-11-03 18:14] LABS: ALBUMIN SERUM 4.6 g/dL (3.5-5.0); BILIRUBIN, DIRECT 0.1 mg/dL (0.0-0.2); BILIRUBIN,INDIRECT 1.8 mg/dL (0.0-0.9); BILIRUBIN,TOTAL 1.9 mg/dL (0.2-2.0); BUN/CREATININE RATIO 15.55; CALCIUM SERUM 9.3 mg/dL (8.4-10.2); CREATININE SERUM 1.8 mg/dL (0.6-1.4); GLOM FILT RATE Estimated 49.4 mL/min (>60); PROTEIN TOTAL SERUM 9.3 g/dL (6.0-8.3)
[2016-11-03 18:44] LABS: BETA HYDROXYBUTYRATE 12.37 MMOL/L (0.02-0.27); POTASSIUM 6.5 mmol/L (3.5-5.1)
[2016-11-03 19:28] LABS: POC - CKMB 1.9 ng/mL (0.0-7.9); POC - TROPONIN <0.05 ng/mL (<=0.05)
[2016-11-03 20:41] LABS: URINE APPEARANCE CLEAR; URINE BILIRUBIN NEG (NEG); URINE BLOOD NEG (NEG); URINE COLOR YELLOW; URINE GLUCOSE >1000 MG/DL (NEG); URINE KETONE 3+ (NEG); URINE LEUKOCYTE ESTERASE NEG (NEG); URINE NITRATE NEG (NEG); URINE PROTEIN 1+ (NEG); URINE SPECIFIC GRAVITY 1.025 (1.003-1.035); URINE UROBILINOGEN 0.2 MG/DL (NEG)
[2016-11-03 20:45] LABS: URBCS1 AUWI 0-2 /[HPF] (0-2); URINE BACTERIA AUWI NEG (NEGATIVE); URINE SQUAMOUS EPITHELIAL CELL NONE SEEN /[HPF]; UWBCS1 AUWI 0-2 (0-5)
[2016-11-03 20:46] LABS: URINE SOURCE CATH
[2016-11-03 20:53] LABS: AMPHETAMINE POS (NEG); BARBITURATES NEG (NEG); BENZODIAZEPINES NEG (NEG); COCAINE NEG (NEG); MARIJUANA NEG (NEG); OPIATES POS (NEG); TRICYCLIC ANTIDEPRESSANTS POS (NEG); U METHADONE NEG (NEG)
[2016-11-03 22:07] LABS: POC - CKMB <1.0 ng/mL (0.0-7.9); POC - TROPONIN <0.05 ng/mL (<=0.05)
[2016-11-03 23:31] LABS: MAGNESIUM 2.6 mg/dL (1.6-3.0)
[2016-11-04 00:30] LABS: CALCIUM SERUM 8.4 mg/dL (8.4-10.2); CREATININE SERUM 1.2 mg/dL (0.6-1.4); GLOM FILT RATE Estimated 80.7 mL/min (>60)
[2016-11-04 00:31] LABS: POTASSIUM 4.1 mmol/L (3.5-5.1)
[2016-11-04 02:15] LABS: BASOPHIL# 0.1 X10e3 (0-0.3); BASOPHIL% 0.5 % (0-2.5); EOSINOPHIL% 0.1 % (0.0-7.0); HEMATOCRIT 40.6 % (38.0-50.0); LYMPHOCYTE# 4.1 X10e3 (1.0-3.5); LYMPHOCYTE% 34.5 % (17.0-45.0); MEAN CORPUSCULAR HEMOGLOBIN 26.2 PG (28-34); MEAN CORPUSCULAR HGB CONC 32.1 g/dL (30-36); MEAN PLATELET VOLUME 8.3 FL (6.5-11.5); MONOCYTE# 1.4 X10e3 (0-1.0); MONOCYTE% 12.1 % (3.0-12.0); NEUTROPHIL# 6.3 X10e3 (1.5-7.1); NEUTROPHIL% 52.8 % (40-75); PLATELET COUNT 214 X10e3 (140-420); RED BLOOD COUNT 4.98 X10e (3.90-5.60); RED CELL DISTRIBUTION WIDTH 14.2 % (11.0-15.5); WHITE BLOOD COUNT 11.9 X10e3 (4.0-10.5)
[2016-11-04 02:22] LABS: MEAN CELL VOLUME 81.6 FL (83-96)
[2016-11-04 02:25] LABS: DIFF IND NO
[2016-11-04 02:39] LABS: ALBUMIN SERUM 3.7 g/dL (3.5-5.0); BILIRUBIN,TOTAL 1.2 mg/dL (0.2-2.0); BUN/CREATININE RATIO 20.9; CALCIUM SERUM 8.5 mg/dL (8.4-10.2); CREATININE SERUM 1.1 mg/dL (0.6-1.4); GLOM FILT RATE Estimated 89.6 mL/min (>60); MAGNESIUM 2.2 mg/dL (1.6-3.0); PHOSPHOROUS 2.8 mg/dL (2.5-4.6); POTASSIUM 4.1 mmol/L (3.5-5.1); PROTEIN TOTAL SERUM 7.7 g/dL (6.0-8.3)
[2016-11-04 09:05] LABS: BUN/CREATININE RATIO 21.11; CALCIUM SERUM 8.4 mg/dL (8.4-10.2); CREATININE SERUM 0.9 mg/dL (0.6-1.4); GLOM FILT RATE Estimated 114.2 mL/min (>60); POTASSIUM 3.3 mmol/L (3.5-5.1)
[2016-11-04 15:15] LABS: BUN/CREATININE RATIO 16.25; CALCIUM SERUM 8.1 mg/dL (8.4-10.2); CREATININE SERUM 0.8 mg/dL (0.6-1.4); GLOM FILT RATE Estimated 119.9 mL/min (>60); PHOSPHOROUS 1.2 mg/dL (2.5-4.6)
[2016-11-05 02:48] LABS: BASOPHIL% 0.4 % (0-2.5); EOSINOPHIL% 0.1 % (0.0-7.0); HEMATOCRIT 35.8 % (38.0-50.0); HEMOGLOBIN 11.8 gm/dL (13.0-16.0); LYMPHOCYTE# 2.8 X10e3 (1.0-3.5); LYMPHOCYTE% 35.8 % (17.0-45.0); MEAN CELL VOLUME 80.2 FL (83-96); MEAN CORPUSCULAR HEMOGLOBIN 26.4 PG (28-34); MEAN PLATELET VOLUME 7.8 FL (6.5-11.5); MONOCYTE# 0.7 X10e3 (0-1.0); MONOCYTE% 9.3 % (3.0-12.0); NEUTROPHIL# 4.2 X10e3 (1.5-7.1); NEUTROPHIL% 54.4 % (40-75); PLATELET COUNT 167 X10e3 (140-420); RED BLOOD COUNT 4.46 X10e (3.90-5.60); RED CELL DISTRIBUTION WIDTH 13.7 % (11.0-15.5); WHITE BLOOD COUNT 7.8 X10e3 (4.0-10.5)
[2016-11-05 02:49] LABS: DIFF IND NO
[2016-11-05 03:29] LABS: ALBUMIN SERUM 3.2 g/dL (3.5-5.0); BILIRUBIN,TOTAL 0.7 mg/dL (0.2-2.0); BUN/CREATININE RATIO 14.28; CALCIUM SERUM 7.9 mg/dL (8.4-10.2); CREATININE SERUM 0.7 mg/dL (0.6-1.4); GLOM FILT RATE Estimated 126.7 mL/min (>60); MAGNESIUM 1.8 mg/dL (1.6-3.0); PHOSPHOROUS 1.8 mg/dL (2.5-4.6); PROTEIN TOTAL SERUM 6.8 g/dL (6.0-8.3)
[2016-11-09 11:03] LABS: HA AB IGM (HEPPAN) Nonreactive (()); HB CORE AB IGM (HEPPAN) Nonreactive (Nonreactive); HB S AG (HEPPAN) Nonreactive (Nonreactive); HEP C AB (HEPPAN) Reactive (Nonreactive)
== END 2016-11-05 21:43 | disposition left against medical advice (07) | DRG 638 ==
LOC: CED 18:10 → CEDOF 19:45 → CICCU3 11-04 03:10 → C2A 11-04 18:26
PROVIDERS: Emergency Medicine; Family Medicine; Internal Medicine
DX: E10.10 Type 1 diabetes mellitus with ketoacidosis without coma (principal); N17.9 Acute kidney failure, unspecified; F33.2 Major depressive disorder, recurrent severe without psychotic features; E10.42 Type 1 diabetes mellitus with diabetic polyneuropathy; E87.5 Hyperkalemia; F13.20 Sedative, hypnotic or anxiolytic dependence, uncomplicated; F11.20 Opioid dependence, uncomplicated; Z79.4 Long term (current) use of insulin; R74.0 Nonspecific elevation of levels of transaminase and lactic acid dehydrogenase [LDH]; B19.20 Unspecified viral hepatitis C without hepatic coma; F19.10 Other psychoactive substance abuse, uncomplicated; F17.210 Nicotine dependence, cigarettes, uncomplicated; Z21 Asymptomatic human immunodeficiency virus [HIV] infection status; F90.9 Attention-deficit hyperactivity disorder, unspecified type; F10.20 Alcohol dependence, uncomplicated
CPT/HCPCS: 36415; 71010; 80048; 80053; 80074; 80076; 80307; 81003; 82010; 82150; 82553; 82947; 83036; 83690; 83735; 84100; 84132; 84439; 84484; 85025; 86701; 86702; 86780; 87040; 87086; 87522; 87806; 93005; 96361; 96374; 99285; G0480; J1815; J2405; J3411; J7042

== ENCOUNTER 2017-03-08 07:28 | Inpatient (IN) | payer MEDICARE ==
[~2017-03-08] VITALS: Ht 172.7 cm; Wt 65.5 kg
--- NOTE | ~2017-03-08 | CO ---
Unit #: [id number] #: [id number] Patient: RONNIE JOHNSON [id number] [address] [address] [id number] I MR#: [id number] NAME: RONNIE JOHNSON ROOM: 215 Age: 31 Sex: M Admission Date: 03/08/2017 : 1985 Attending Physician: Anika Grimaldo M.D. Primary Care Physician: Primary Care Physician No Consultation Date: 03/12/2017 CONSULTATION REPORT REASON FOR CONSULTATION Followup. DISCUSSION Mr. Ronnie Johnson is a 31-year-old male, seen in room 215, bed 1 on 03/12/2017. The patient has a history of amphetamine abuse disorder, opioid use disorder, alcohol use disorder, major depressive disorder, ADHD combined type. The patient reports that he had an I and D done on his left arm for abscess this morning. The patient reports that he is feeling better. The patient reports that he does not like to be on trazodone and Celexa. The patient reports that he was on Zoloft and Seroquel that helped him, also on Remeron. The patient is still feeling sad, depressed, anxious, but denied any suicidal or homicidal ideation. Denied any psychotic symptom. The patient would like to go to a drug rehab upon discharge. The patient's vital signs; temperature 97.7, heart rate 79, respiratory rate 18, blood pressure 135/89, and oxygen saturation 98%. REVIEW OF SYSTEMS Complete review of system is unremarkable. MENTAL STATUS EXAMINATION General appearance; the patient dressed casually in hospital attire. The patient left arm was bandaged, had I and D done this morning. Attention span and concentration, fair. Speech, regular rate and coherent. Oriented in time, place, and person. Mood and affect were labile. Thought process, coherent. Thought content, the patient denied any thoughts of harming self or others and denied any psychotic symptom. Recent and remote memory, fair. Language, intact. Fund of knowledge, fair. Insight and judgment, fair to slightly impaired. DIAGNOSES 1. Opioid use disorder, severe, F11.20. 2. Major depressive disorder, recurrent, severe, F33.2. ASSESSMENT/PLAN 1. Supportive psychotherapy and psychoeducation provided to the patient. 2. Educated about benefits and side effects of medication and course and prognosis of illness. 3. Advised to discontinue Celexa and trazodone and resume Zoloft 50 mg at bedtime and Remeron 15 mg at bedtime. The patient to continue with the other medication Vistaril and Seroquel. If needed, we will consider further adjustment of medication. Please feel free to call if any question, telephone #[phone]. Unit #: [id number] #: [id number] Patient: RONNIE JOHNSON Dictated by... Felice Hinojosa/shiela TD: 03/13/2017 00:03 JOB #: [id number] CONSULTATION REPORT Page 1 of 1 X Richie Clements MD X CONSULTATION REPORT
--- NOTE | ~2017-03-08 | EKG ---
PATIENT: NATHALY IVERSON UNIT #: [id number] Ventricular Rate: 91 BPM Atrial Rate: 91 BPM P-R Interval: 148 ms QRS Duration: 84 ms Q-T Interval: 384 ms QTC Calculation(Bezet): 472 ms P Blackstock: 70 degrees Calculated R Blackstock: 78 degrees Calculated T Blackstock: 44 degrees Diagnosis Line: Normal sinus rhythm Diagnosis Line: Normal ECG Diagnosis Line: When compared with ECG of 03-NOV-2016 17:23, Diagnosis Line: ST no longer depressed in Inferior leads Diagnosis Line: Nonspecific T wave abnormality, worse in Inferior Diagnosis Line: leads Diagnosis Line: T wave amplitude has decreased in Anterior leads Diagnosis Line: Confirmed by TRUDY DELCID MD ([id number]) on Diagnosis Line: 03/08/2017 10:44:46 PM INTERPRETING MD: SOCRATES
--- NOTE | ~2017-03-08 | CO ---
Unit #: [id number] #: [id number] Patient: RONNIE JOHNSON [id number] [facility] [address] [place], [place] [address] [id number] I MR#: [id number] NAME: RONNIE JOHNSON ROOM: 215 Age: 31 Sex: M Admission Date: 03/08/2017 : 1985 Attending Physician: Anika Grimaldo M.D. Primary Care Physician: Primary Care Physician No Consultation Date: 03/14/2017 CONSULTATION REPORT REASON FOR CONSULTATION Followup. DISCUSSION Mr. Ronnie Johnson is a 31-year-old male, seen on 03/14/2017 in room 215 bed 1 at [facility]. The patient reported that he is not having lot of trouble falling asleep, staying asleep. The patient also reports that he wanted to be on his ADHD medication, on Strattera. The patient denied any suicidal or homicidal ideation. Denied any psychotic symptom. The patient's blood glucose was 380 this morning. The patient's vital signs; temperature 98.3, pulse 76, respirations 18, blood pressure 126/79, and oxygen saturation 100%. REVIEW OF SYSTEMS Complete review of systems is unremarkable. MENTAL STATUS EXAMINATION General appearance, the patient dressed casually. Attention span and concentration, fair. Mood and affect, labile. Thought process, circumstantial. The patient denied any thoughts of harming self or others or any hallucination, but reported having problem with concentration, focusing, and trouble sleeping. Recent and remote memory, fair. Language, intact. Fund of knowledge, fair. Insight and judgment, fair to slightly impaired. DIAGNOSES Opioid use disorder, severe, F11.20; major depressive disorder, recurrent, severe, F33.2. ASSESSMENT AND PLAN 1. Supportive psychotherapy and psychoeducation provided to the patient. 2. Educated about benefits and side effects of medication and course and prognosis of illness. 3. Recommending at this time to discontinue trazodone and start the patient on doxepin 100 mg at bedtime for the above reason. We will continue to follow. 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 Please feel free to call if any questions, telephone #[phone]. Dictated by... RichieFelice Ibarra Unit #: [id number] #: [id number] Patient: RONNIE JOHNSON TD: 03/14/2017 18:37 JOB #: [id number] CONSULTATION REPORT Page 1 of 1 X Richie Clements MD CONSULTATION REPORT
--- NOTE | ~2017-03-08 | HP ---
Unit #: [id number] #: [id number] Patient: NATHALY IVERSON [id number] [address] [address] [id number] E MR#: [id number] NAME: NATHALY IVERSON ROOM: Age: 31 Sex: M Admission Date: 03/08/2017 : 1985 Attending Physician: Freda eHrnandez M.D. Primary Care Physician: No Primary Care Physician HISTORY AND PHYSICAL CHIEF COMPLAINT High sugar. HISTORY OF PRESENT ILLNESS The patient is a 31-year-old male with a past medical history of diabetes, HIV, hepatitis C, ADHD, polysubstance abuse and alcohol abuse, who presented to the emergency department for evaluation of the above. The patient states that he has not been feeling well for approximately two days. He has had nausea and vomiting. He states that he has had abdominal pain that is "everywhere." He has not been taking his insulin. He states that he has been clean from alcohol and drugs for the past six months, although when I admitted him in October he told me that he drank two pints daily and was a daily IV drug user. Today he states that he relapsed on heroin. It is unclear when his last drink truly was. Also of note, the patient was found to be HIV positive during last admission in October. Per Dr. Smith's consultation note, he was supposed to follow up at the specialty clinic. He has not done so. In the emergency department initial pulse and blood pressure were 95 and 119/64 respectively. Laboratory notable for glucose of 542, CO2 was 13, anion gap is 27, pH 7.268. He was given 1 liter of normal saline as well as 4 mg of Zofran and 12.5 mg of Phenergan. He is being admitted to [facility] for evaluation and further treatment. PAST MEDICAL HISTORY 1. Admission to [facility] 11/03 through 11/05/2016 for diabetic ketoacidosis. During the course of his evaluation he was found to be HIV positive. 2. HIV positive. The patient has not followed up at the specialty clinic. 3. Hepatitis C. 4. ADHD. 5. Polysubstance abuse. 6. Diabetes. Diagnosed at age of 2 with associated peripheral neuropathy. PAST SURGICAL HISTORY Appendectomy. SOCIAL HISTORY The patient is currently homeless. He is an IV drug user. He states that his last use was yesterday. He does have a history of alcohol abuse and previously would drink two pints daily. The patient states that his last Unit #: [id number] #: [id number] Patient: NATHALY IVERSON drink was several months ago. He smokes two packs of cigarettes daily. FAMILY HISTORY Notable for his father having diabetes. ALLERGIES No known drug allergies. HOME MEDICATIONS Per the history and physical from October, include 1. Lantus. 2. Seroquel. 3. Celexa. 4. Strattera. Home medications will need to be reviewed and verified. REVIEW OF SYSTEMS A complete review of systems is negative except as indicated in the history of present illness. PHYSICAL EXAMINATION GENERAL: The patient is a male who is sleeping, but wakes to voice. VITALS: Temperature 98.4, pulse 95, respiratory rate 16, blood pressure 119/64, oxygen saturation 99% on room air. HEENT: Mucous membranes are dry. Extraocular muscles are intact. NECK: Supple. Trachea midline. LUNGS: Clear to auscultation bilaterally with no increased work of breathing. HEART: Tachycardic in the 110s. ABDOMEN: Soft. He is mildly tender to palpation throughout. Bowel sounds are present in all four quadrants. EXTREMITIES: There is no pedal edema. Nontender. NEUROLOGIC: The patient is oriented times three. He follows commands. PSYCHIATRIC: The patient demonstrates poor judgement and insight. He is cooperative. SKIN: The patient has multiple scattered excoriated areas, some of which are actively draining. DIAGNOSTIC STUDIES LABORATORY: CMP notable for glucose 542, CO2 13, anion gap 27, BUN 18, creatinine 1.6, total bilirubin 2.1, beta hydroxybutyrate 10.94. Arterial blood gas shows pH 7.268, pO2 75.9. CBC is essentially normal. ASSESSMENT The patient is a 31-year-old male with 1. Diabetic ketoacidosis. The patient received one liter of normal saline in the emergency department. The patient has been noncompliant with insulin 2. Anion gap metabolic acidosis with an anion gap of 21. 3. Acute kidney injury. The patient's creatinine is 1.6 today. It was previously normal. 4. HIV positive. It looks like viral load and CD4 count were ordered during the last admission, but I do not see the results in [facility]. The patient has not followed up at the specialty clinic. 5. Hepatitis C. 6. ADHD. Unit #: [id number] #: [id number] Patient: NATHALY IVERSON 7. Polysubstance abuse. The patient states that his last use of IV heroin was yesterday. 8. Alcohol abuse. The patient has a history of drinking two pints of alcohol daily. He states that his last use was several months ago. 9. Tobacco abuse. PLAN 1. Admit to the ICU. 2. N.p.o. except for ice chips. 3. Diabetic ketoacidosis protocol with insulin drip. 4. Urinalysis with culture and sensitivity. 5. Urine tox screen. 6. Check magnesium and phosphorus levels. 7. Alcohol withdrawal protocol. 8. manager export, social work consult regarding alcohol abuse and polysubstance abuse. 9. Check blood alcohol level. 10. Blood cultures times two. 11. Vancomycin and Zosyn IV for scattered abscesses of the upper extremities. 12. P.r.n. Phenergan. 13. P.r.n. Zofran. 14. Wound care consult regarding extremity wounds. 15. SCDs for DVT prophylaxis. 16. Protonix for GI prophylaxis. 17. Repeat labs in the morning. 18. Additional workup and consultants based on the above. 34 minutes critical care time spent in the care of this patient (10:50 to 11:34 a.m.). Dictated by Felice Jones TD: 03/08/2017 11:35 JOB #: [id number] HISTORY AND PHYSICAL Page 1 of 1 X Natalie Altman MD X HISTORY AND PHYSICAL
--- NOTE | ~2017-03-08 | DS ---
Unit #: [id number] #: [id number] Patient: NATHALY IVERSON [id number] [address] [address] [id number] I MR#: [id number] NAME: NATHALY IVERSON ROOM: 215 Age: 31 Sex: M Admission Date: 03/08/2017 : 1985 Discharge Date: Attending Physician: Anika Grimaldo M.D. Primary Care Physician: No Primary Care Physician DISCHARGE SUMMARY ADDENDUM Please note - patient's wound culture returned with MRSA but is indeed sensitive to Bactrim and he will complete Bactrim as previously dictated. I also learned that his insurance will cover Humalog rather than NovoLog and he will continue Humalog at 10 units subcu t.i.d. with meals. His Levemir has been increased to 30 units subcu b.i.d. He has also been restarted on his home Gabapentin 300 mg b.i.d. and one month prescription was given. Still awaiting discussion with [facility] but anticipate discharge to [facility] or home later today. Dictated by... Anika Grimaldo M.D. ISIDORO/brian TD: 03/15/2017 11:57 JOB #: [id number] DISCHARGE SUMMARY Page 1 of 1 X Anika Grimaldo MD X DISCHARGE SUMMARY
--- NOTE | ~2017-03-08 | CO ---
Unit #: [id number] #: [id number] Patient: RONNIE JOHNSON [id number] [place], [place] [address] [id number] I MR#: [id number] NAME: RONNIE JOHNSON ROOM: 215 Age: 31 Sex: M Admission Date: 03/08/2017 : 1985 Attending Physician: Castro Diallo M.D. Consultation Date: 03/10/2017 CONSULTATION REPORT REASON FOR CONSULTATION Opioid abuse, anxiety withdrawal. HISTORY OF PRESENT ILLNESS Mr. Ronnie Johnson is a 31-year-old white male, seen in room 215, bed 1 on 03/10/2017 at [facility]. The patient dressed casually, lying comfortably in bed. The patient reported having withdrawal and restlessness of his legs, anxiety, trouble sleeping, depression, mood lability. The patient currently denied any suicidal or homicidal ideation. The patient's urine drug screen was positive for amphetamine. The patient admitted using opiates, amphetamine, alcohol. Also, reported racing thoughts. PAST PSYCHIATRIC HISTORY Remarkable for history of previous treatment at [facility]. Last admitted on 10/10/2016. History of major depressive disorder, opiate abuse. The patient's vital signs; temperature 98.7, pulse 77, respirations 18, blood pressure 104/69, and oxygen saturation 100%. Past psychiatric history is remarkable for history of previous admission at [facility] as mentioned above. MEDICAL HISTORY Remarkable for history of HIV positive, hepatitis C, ADHD, diabetes mellitus. MEDICATION HISTORY The patient is on Lantus, Seroquel, Celexa, Strattera. FAMILY HISTORY AND SOCIAL HISTORY The patient has a poor support system. No history of abuse, but history of substance abuse as mentioned above. REVIEW OF SYSTEMS Complete review of systems is unremarkable except as mentioned above. MENTAL STATUS EXAMINATION General appearance, the patient dressed casually. Attention span and concentration, fair. Speech, regular rate. Oriented in time, place, and person. Mood and affect, sad and dysphoric. Thought process, coherent. Thought content, the patient denied any thoughts of harming self or others, but sad, depressed, paranoia. Recent and remote memory, poor. Language, intact. Fund of knowledge, fair. Insight and judgment, fair to slightly impaired. Unit #: [id number] #: [id number] Patient: RONNIE JOHNSON DIAGNOSES Opiate use disorder, severe, F11.20; amphetamine use disorder, severe, F15.20; alcohol use disorder, severe, F10.20; major depressive disorder, recurrent, severe, F33.2; history of attention-deficit hyperactivity disorder. Secondary diagnosis: Deferred. Medical diagnosis: Please refer to H and P. Stressors: Psychosocial stressors. ASSESSMENT/PLAN 1. Supportive psychotherapy and psychoeducation provided to the patient. 2. Educated about benefits and side effects of medication and course and prognosis of illness. 3. Advised to start the patient on Seroquel 100 mg at bedtime, Desyrel 50 mg at bedtime, Vistaril 25 mg t.i.d., and Celexa 20 mg at bedtime. We will continue to follow. Please feel free to call if any question, telephone #[phone]. Dictated by... Felice Hinojosa/shiela TD: 03/11/2017 19:06 JOB #: [id number] CONSULTATION REPORT Page 1 of 1 X Richie Clements MD X CONSULTATION REPORT
--- NOTE | ~2017-03-08 | CR72 ---
[facility] A Service of [facility] & [facility] RADIOLOGY TEXT RESULTS PATIENT: NATHALY IVERSON LOCATION: [facility] : [birth year] UNIT #: [id number] AGE: [address]: Castro Diallo MD SEX: M ORDER DR: [id number] [facility] [address] [place], [place] [address] [id number] I MR#: [id number] Acc #: [id number] NAME: NATHALY IVERSON : 1985 SEX: M STUDY DATE/TIME: 03/08/2017 11:05 [facility] [id number] STUDY DESCRIPTION: CR Chest Single View Portable Attending Physician: Natalie Altman M.D. Ordering Physician: Freda Hernandez M.D. Primary Care Physician: Primary Care Physician No MEDICAL IMAGING REPORT This report is preliminary unless electronic signature is present EXAM Frontal view of the chest dated 03/08/2017 COMPARISON Single view chest dated 11/03/2016 HISTORY High blood sugar, vomiting, shortness of air today. HIV positive and diabetic. FINDINGS Frontal view of the chest was obtained. A single AP portable view of the chest shows both lungs to be clear. The heart is normal in size. The mediastinal contour is normal. No significant bone abnormalities are seen. IMPRESSION Normal portable chest. Dictated by... Desmond Arroyo M.D. THIS IS AN ELECTRONICALLY VERIFIED REPORT Desmond Arroyo M.D. at 03/09/2017 5:24 PM CPR/neftaly TD: 03/08/2017 13:12 JOB #: [id number] MEDICAL IMAGING REPORT Page 1 of 1 COPY
--- NOTE | ~2017-03-08 | OR ---
Unit #: [id number] #: [id number] Patient: NATHALY IVERSON [id number] [address] [place], [place] [address] [id number] I MR#: [id number] NAME: NATHALY IVERSON ROOM: 215 Date of Procedure: 03/12/2017 Admission Date: 03/08/2017 Surgeon: Joseph Dos Santos M.D. : 1985 Attending Physician: Castro Diallo M.D. OPERATIVE REPORT PREOPERATIVE DIAGNOSIS Left forearm abscess. POSTOPERATIVE DIAGNOSIS Left forearm abscess. PROCEDURE PERFORMED Incision and drainage of abscess, aerobic and anaerobic cultures taken. ANESTHESIA General endotracheal anesthesia. ESTIMATED BLOOD LOSS 10 mL. INDICATIONS FOR PROCEDURE A 31-year-old diabetic who is an IV drug abuser, presented in diabetic ketoacidosis. After stabilization of his ketoacidosis, he was noted to have a left forearm abscess at an injection site. DESCRIPTION OF PROCEDURE The patient was transported from his hospital room to the operating room, and after induction of general endotracheal anesthesia, his left arm was prepped and draped in usual sterile fashion. A vertical incision was made over the fluctuant abscess and a large amount of grossly purulent and foul-smelling drainage was recovered. I took cultures from the purulent drainage. I broke down loculations digitally and then copiously irrigated the abscess cavity with sterile saline. No further debridement was needed. The wound was packed with dressing sponges soaked in Betadine and wrung out. Dry sponges Kerlix and an Yariel wrap were placed. Sponges and needle counts were correct x3. The patient tolerated the procedure well, and transported to recovery in stable condition. There was no family to discussed the findings with postoperatively. Dictated by... Felice Mayorga/shiela TD: 03/12/2017 12:24 Unit #: [id number] #: [id number] Patient: NATHALY IVERSON JOB #: [id number] OPERATIVE REPORT Page 1 of 1 X Joseph Dos Santos MD PROCEDURE OPERATIVE NOTE
--- NOTE | ~2017-03-08 | DS ---
Unit #: [id number] #: [id number] Patient: NATHALY JOHNSON [id number] [address] [address] [id number] I MR#: [id number] NAME: NATHALY JOHNSON ROOM: 215 Age: 31 Sex: M Admission Date: 03/08/2017 : 1985 Discharge Date: 03/13/2017 Attending Physician: Anika Grimaldo M.D. Primary Care Physician: No Primary Care Physician DISCHARGE SUMMARY PRINCIPAL DIAGNOSES 1. Diabetic ketoacidosis. 2. Diabetes mellitus type 1, uncontrolled. Hemoglobin A1c 11.7. 3. Left arm abscess, status post incision and drainage. Cultures preliminarily show staph aureus. 4. Hypophosphatemia. 5. IV drug abuse, including amphetamine. 6. Opiate abuse. 7. History of alcohol abuse without evidence of withdrawal. 8. History of hepatitis C, not receiving treatment. 9. Self-reported history of HIV with negative HIV workup here, including a CD4 count of 811. No evidence of HIV virus in the blood. CONSULTANTS Dr. Clements, psychiatry Dr. Dos Santos, general surgery. PROCEDURES Incision and drainage of left forearm abscess. This occurred without complication. DIAGNOSTIC DATA IMAGING: Chest x-ray on 03/08/2017 which was normal. CLINICAL HISTORY/HOSPITAL COURSE Mr. Johnson is a 31-year-old male admitted to our facility with elevated sugars. The patient was complaining of having pain everywhere and had nausea and vomiting. The patient was found to be diabetic ketoacidosis and subsequently admitted to the ICU. In regard to the patient's diabetic ketoacidosis, he was placed on insulin drip. Fortunately, his gap closed and he has now been transitioned to subcutaneous insulin and he is tolerating a diet. His sugars still remain pretty steady in the 200 to 300s. I placed him on scheduled NovoLog in addition to increased dose of Levemir and he will need close followup with endocrinology as an outpatient. His associated electrolyte abnormalities have been corrected. The patient does have a history of alcohol abuse and was placed on scheduled Librium, but he has had no evidence of withdrawal. I am going to taper Librium. The patient also admitted to relapsing on heroin the day of presentation. He would like to receive treatment and is currently being evaluated by Unit #: [id number] #: [id number] Patient: NATHALY JOHNSON [place]el. Assuming he is stable, he will be discharged there. The patient was also found to have erythema of his left arm that developed during hospitalization and general surgery was consulted. The patient underwent incision and drainage and was placed on appropriate antibiotics. Cultures are currently growing staph aureus a rare amount with pending sensitivities. He has had no fever or has he had any leukocytosis. I am going to change him to Bactrim and I will follow up cultures. The patient was also seen by Dr. Clements due to his drug abuse. He also has a history of depression. He was placed on medications by Dr. Clements. The patient will be discharged to [facility] when a bed is available. DISCHARGE CONDITION Stable. DISCHARGE DISPOSITION Discharge to [facility]. DISCHARGE MEDICATIONS 1. Remeron 50 mg at bedtime. 2. Zoloft 50 mg at bedtime. 3. Seroquel 100 mg at bedtime. 4. Levemir 25 units subcutaneously b.i.d. 5. NovoLog 10 units subcutaneous t.i.d. with meals, with associated high-dose sliding scale. 6. Tramadol 50 mg p.o. q.6 h. p.r.n. pain. 7. Dakin's quarter strength solution applied topically b.i.d. to left upper extremity with dressing changes. 8. Bactrim DS 1 b.i.d. DISCHARGE INSTRUCTIONS The patient was instructed to follow a constant carb diet. He is to continue Accu-Cheks at least three times daily, one fasting and two meals post prandial to monitor insulin dosing. ACTIVITY 1. He can increase his activity as tolerated. 2. He will do dressing changes, wet-to-dry b.i.d. with Dakin's. FOLLOWUP 1. The patient will follow up with Dr. Dos Santos in two weeks. 2. The patient can follow up with his primary care provider upon discharge from [facility]. Dictated by... Anika Grimaldo M.D. Leandro TD: 03/13/2017 16:05 JOB #: [id number] Unit #: [id number] #: [id number] Patient: NATHALY JOHNSON DISCHARGE SUMMARY Page 1 of 1 X Anika Grimaldo MD X DISCHARGE SUMMARY
--- NOTE | ~2017-03-08 | CO ---
Unit #: [id number] #: [id number] Patient: RONNIE JOHNSON [id number] [address] [address] [id number] I MR#: [id number] NAME: RONNIE JOHNSON ROOM: 215 Age: 31 Sex: M Admission Date: 03/08/2017 : 1985 Attending Physician: Anika Grimaldo M.D. Primary Care Physician: Primary Care Physician No Consultation Date: 03/15/2017 CONSULTATION REPORT REASON FOR CONSULTATION Followup. DISCUSSION Mr. Ronnie Johnson is a 31-year-old male. The patient seemed somewhat anxious and nervous and reported that he needs to go into the drug rehab program and he cannot survive outside without going there. The patient having lot of anxiety about going to the program. The patient was agreeable to go to the drug rehab program. The patient's blood glucose was 226. The patient's vital signs; temperature 98.2, heart rate 85, respiratory rate 18, blood pressure 129/84, and oxygen saturation 100%. REVIEW OF SYSTEMS Complete review of systems is unremarkable. MENTAL STATUS EXAMINATION General appearance; the patient dressed casually in street clothes, has a bandage on his left arm. Attention span and concentration, fair. Speech, regular rate and somewhat pressured. Oriented in time, place, and person. Mood and affect; sad, dysphoric, and anxious. Thought process, coherent. Thought content, the patient denied any thoughts of harming self or others. Denied any hallucination. Recent and remote memory, fair. Language, intact. Fund of knowledge, fair. Insight and judgment, fair to slightly impaired. DIAGNOSES Psychiatric: Opioid use disorder, severe, F11.20 and major depressive disorder, recurrent, severe, F33.2. ASSESSMENT/PLAN 1. Supportive psychotherapy and psychoeducation provided to the patient. 2. Educated about benefits and side effects of medication and course and prognosis of illness. 3. Advised to continue with current medication combination. If needed, consider further adjustment of medication. 4. 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 Please feel free to call if any questions, telephone #[phone]. Dictated by... Richie Clements M.D. FOX/shiela Unit #: [id number] #: [id number] Patient: RONNIE JOHNSON TD: 03/15/2017 19:04 JOB #: [id number] CONSULTATION REPORT Page 1 of 1 X Richie Clements MD CONSULTATION REPORT
--- NOTE | ~2017-03-08 | A ---
[facility] Nutrition Therapy DATE: 03/09/17 Patient: NATHALY IVERSON Physician: ALEC Address: [address] [place] [address] SAN[place] Room/Bed: [address], Zip: [place] [address] Admit Date: 03/08/17 Date of : [birth year] Height: 5 8 Weight: 144 65.5 NUTRITIONAL ASSESSMENT: REASON: Seen due to diagnosis Admitting dx: 31 y/o male admitted with DKA PMH: DM, Hep C, HIV, ADHD, Heroin + ETOH abuse Anthropometrics: Ht: 68", Wt: 144 lbs, BMI: 21 (normal) Labs: K+ 3.2, Phos 1.4, glucose 114, POC 122-168, A1C 11.7 Meds: PPI, thiamine, folic acid, MVI, levemir, low SSI Assessment: Chart reviewed, events noted. Patient known to RD's due to several DKA admissions and medical noncompliance, RD most recently assessed on 11/04/16 and again provided consistent carb diet education. Patient is homeless, relapsed on heroin and has not been taking his insulin. Glucose was 542 on admission, is now better controlled. Diet advanced this morning to consistent carb. See recs below, will follow. Dx: Altered nutrition related lab values r/t medication non-compliance AEB glucose 542 on admission, A1C 11.7. Intervention: CC diet Monitoring, Evaluation and Goals: Glucose WNL, reduction in A1C Recommendations: 1. Agree with consistent carb diet. 2. RD has previously provided diet education, most recently on 11/04/16. Patient is non-compliance. Please consult with any further nutritional needs. 3. Optimize insulin regimen. /NC for supplies. RD will follow Mild nutrition risk Respectfully, [facility] Nutrition Therapy DATE: 03/09/17 Patient: NATHALY IVERSON Physician: ALEC Address: [address] [place] [address] SAN[place] Room/Bed: [address], Zip: [place] [address] Admit Date: 03/08/17 Date of : [birth year] Height: 5 8 Weight: 144 65.5 Adelaide Miller, SANIA, LD [employer] [facility] [employer] cc: client file
--- NOTE | ~2017-03-08 | CO ---
Unit #: [id number] #: [id number] Patient: RONNIE JOHNSON [id number] [address] [address] [id number] I MR#: [id number] NAME: RONNIE JOHNSON ROOM: 215 Age: 31 Sex: M Admission Date: 03/08/2017 : 1985 Attending Physician: Anika Grimaldo M.D. Primary Care Physician: Primary Care Physician No Consultation Date: 03/13/2017 CONSULTATION REPORT REASON FOR CONSULTATION Followup. DISCUSSION Mr. Ronnie Johnson is a 31-year-old white male, seen in room 215 bed 1 on 03/13/2017. The patient reports medication is helping him, but still feeling sad, depressed, and would like to go to a drug rehab. The patient denied any suicidal or homicidal ideation. Denied any psychotic symptom. The patient's vital signs; temperature 98.5, pulse 86, respirations 18, blood pressure 117/87, oxygen saturations 99%. REVIEW OF SYSTEMS Complete review of systems unremarkable. MENTAL STATUS EXAMINATION General appearance, the patient dressed in hospital attire, lying comfortably in bed. Attention span and concentration, fair. Speech, regular rate and coherent. Oriented in time, place, and person. Mood and affect were labile. Thought process, coherent. Thought content, the patient denied any thoughts of harming self or others, but sad, depressed, and anxious. Denied any hallucination. Recent and remote memory, fair. Language, intact. Fund of knowledge, fair. Insight and judgment, fair to slightly impaired. DIAGNOSES Psychiatric: Opioid use disorder, severe, F11.20; major depressive disorder, recurrent, severe, F33.2. ASSESSMENT AND PLAN 1. Supportive psychotherapy and psychoeducation provided to the patient. 2. Educated about benefits and side effects of medication and course and prognosis of illness. 3. Advised to continue with current combination of medication and make further adjustment of medication if needed. The patient to follow up upon discharge in drug rehab program. Please feel free to call if any questions, telephone #[phone]. Dictated by... Richie Clements M.D. FOX/shiela TD: 03/13/2017 18:49 Unit #: [id number] #: [id number] Patient: RONNIE JOHNSON JOB #: [id number] CONSULTATION REPORT Page 1 of 1 X Richie Clements MD CONSULTATION REPORT
--- NOTE | ~2017-03-08 | XA166 ---
[facility] A Service of [facility] RADIOLOGY TEXT RESULTS PATIENT: NATHALY IVERSON LOCATION: C2A - : [birth year] UNIT #: [id number] AGE: [address]: Castro Diallo MD SEX: M ORDER DR: [id number] [facility] [address] [place], [place] [address] [id number] I MR#: [id number] Acc #: [id number] NAME: NATHALY IVERSON : 1985 SEX: M STUDY DATE/TIME: 03/08/2017 13:05 UNIT: C2A ROOM: 215 STUDY DESCRIPTION: XA PICC Line Placement WO Port Attending Physician: Castro Diallo M.D. Ordering Physician: Natalie Altman M.D. Primary Care Physician: Primary Care Physician No MEDICAL IMAGING REPORT This report is preliminary unless electronic signature is present EXAM PICC line insertion 03/08/2017 HISTORY IV access needed. FINDINGS PRE-PROCEDURE The procedure was explained to the patient and/or patient customer service representative teacher including risks, benefits, potential complications and potential for alternative forms of treatment. Informed consent was obtained, and prior to initiating the procedure a formal timeout procedure was performed. PROCEDURE Using full standard sterile barrier technique, including caps, gowns, gloves, masks, as well as sterile skin preparation and standard sterile draping, the right arm was prepped and draped in the usual fashion, and real-time sterile ultrasound guidance was used to localize an arm vein and to confirm vessel patency. A hard copy ultrasound image was recorded. After local anesthesia with 1% Xylocaine, the vein was punctured using real-time sterile ultrasound guidance, and an 0.018 guidewire was advanced into the superior vena cava, using fluoroscopic guidance. A 5 [place] dual-lumen PICC was then measured and deployed with the tip positioned in the superior vena cava. The position of the line was documented with a radiographic image. The line was secured in place with an adhesive dressing and an antibiotic patch was applied. Total fluoro time was 0.1 minutes. IMPRESSION Successful placement of a 5 [place] dual-lumen Power PICC via the right under ultrasound and fluoroscopic guidance. The tip of the PICC is in good position in the superior vena cava. Single spot image obtained. [facility] A Service of [facility] RADIOLOGY TEXT RESULTS PATIENT: NATHALY IVERSON LOCATION: [facility] 215-01 : [birth year] UNIT #: [id number] AGE: [address]: Castro Diallo MD SEX: M ORDER DR: Dictated by... Jori Corona M.D. THIS IS AN ELECTRONICALLY VERIFIED REPORT Jori Corona M.D. at 03/10/2017 4:50 PM TEV/noemí TD: 03/10/2017 12:03 JOB #: [id number] MEDICAL IMAGING REPORT Page 1 of 1 COPY
--- NOTE | ~2017-03-08 | CO ---
Unit #: [id number] #: [id number] Patient: NATHALY JOHNSON [id number] [address] [address] [id number] I MR#: [id number] NAME: NATHALY JOHNSON ROOM: 215 Age: 31 Sex: M Admission Date: 03/08/2017 : 1985 Attending Physician: Castro Diallo M.D. Consultation Date: 03/12/2017 CONSULTATION REPORT HISTORY OF PRESENT ILLNESS Mr. Johnson is a 31-year-old gentleman with a history of poorly-controlled diabetes, hepatitis C, HIV positive, polysubstance and alcohol abuse, and adult hyperactivity. He is continuing to inject methamphetamine and heroin and presented to the hospital in diabetic ketoacidosis. His ketoacidosis has been reversed, but he has a fluctuant abscess in the left forearm on the dorsal aspect. He needs incision and drainage. PAST MEDICAL HISTORY 1. Previous episodes of diabetic ketoacidosis. 2. Polysubstance abuse. 3. HIV positive. 4. Hepatitis C. 5. Adult hyperactivity. 6. Peripheral neuropathy. 7. Appendectomy. FAMILY HISTORY Diabetes. SOCIAL HISTORY Patient is a homeless IV drug abuser. He admits to his last injection two days ago. He also has a history of alcohol abuse. He smokes two packs of cigarettes a day. HOME MEDICATIONS 1. Lantus. 2. Seroquel. 3. Celexa. 4. Strattera. REVIEW OF SYSTEMS Otherwise unremarkable at this point. PHYSICAL EXAMINATION GENERAL: Patient is awake, alert, and oriented at this time. He is a heavily tattooed, thin male. VITAL SIGNS: Temperature is 97.7, pulse 79, respirations 18, and blood pressure 135/89. HEENT: Unremarkable. CARDIAC: Regular rhythm. LUNGS: Clear. ABDOMEN: Soft. EXTREMITIES: Multiple track santana and superficial wounds to the skin Unit #: [id number] #: [id number] Patient: NATHALY JOHNSON especially on the arms. On the dorsal aspect of the left forearm, he has a 4 x 2 cm fluctuant abscess. NEUROLOGIC: Grossly intact. DIAGNOSTIC STUDIES LABORATORY: Most recently chemistries shows potassium and magnesium are normal. Previously CBC and basic metabolic panel were normal. Beta-hydroxybutyrate was elevated but is normalizing over time. ASSESSMENT AND PLAN Diabetic who initially presented with diabetic ketoacidosis has now had his diabetic ketoacidosis reversed and now needs incision and drainage of abscess of the left forearm. I discussed the procedure with the patient including risks, benefits, complications, and the need for postoperative dressing changes. Given that he is homeless, we will have to get the respiratory care instructor to see what social studies teacher are available to the patient for wound care as an outpatient. Dictated by... Felice Mayorga/iona TD: 03/12/2017 14:09 JOB #: [id number] CONSULTATION REPORT Page 1 of 1 X Joseph Dos Santos MD X CONSULTATION REPORT
[2017-03-08 09:05] LABS: ARTERIAL BLD GAS O2 SATURATION 91.8 % (90.0-100.0); ARTERIAL BLOOD GAS CARBOXY HB 1.3 %sat (0.0-9.0); ARTERIAL BLOOD GAS MET HB 1.1 %sat (0.0-2.0); ARTERIAL BLOOD GAS pH 7.268 (7.350-7.450)
[2017-03-08 09:16] LABS: BASOPHIL% 0.1 % (0-2.5); EOSINOPHIL% 0.1 % (0.0-7.0); HEMATOCRIT 41.1 % (38.0-50.0); HEMOGLOBIN 13.3 gm/dL (13.0-16.0); LYMPHOCYTE# 1.5 X10e3 (1.0-3.5); LYMPHOCYTE% 15.5 % (17.0-45.0); MEAN CELL VOLUME 83.2 FL (83-96); MEAN CORPUSCULAR HEMOGLOBIN 26.9 PG (28-34); MEAN CORPUSCULAR HGB CONC 32.3 g/dL (30-36); MEAN PLATELET VOLUME 9.6 FL (6.5-11.5); MONOCYTE# 0.8 X10e3 (0-1.0); MONOCYTE% 8.1 % (3.0-12.0); NEUTROPHIL# 7.4 X10e3 (1.5-7.1); NEUTROPHIL% 76.2 % (40-75); PLATELET COUNT 185 X10e3 (140-420); RED BLOOD COUNT 4.94 X10e (3.90-5.60); RED CELL DISTRIBUTION WIDTH 14.8 % (11.0-15.5); WHITE BLOOD COUNT 9.7 X10e3 (4.0-10.5)
[2017-03-08 09:18] LABS: DIFF IND NO
[2017-03-08 09:45] LABS: ARTERIAL BLOOD GAS PO2 75.9 mmHg (80.0-100)
[2017-03-08 09:46] LABS: ARTERIAL BLOOD GAS ALLEN TEST NORMAL; ARTERIAL BLOOD GAS ART SITE RIGHT RADIAL; ARTERIAL DRAW? YES
[2017-03-08 10:05] LABS: ALBUMIN SERUM 3.8 g/dL (3.5-5.0); BILIRUBIN, DIRECT 0.3 mg/dL (0.0-0.2); BILIRUBIN,INDIRECT 1.8 mg/dL (0.0-0.9); BILIRUBIN,TOTAL 2.1 mg/dL (0.2-2.0); BUN/CREATININE RATIO 11.25; CALCIUM SERUM 8.8 mg/dL (8.4-10.2); CREATININE SERUM 1.6 mg/dL (0.6-1.4); GLOM FILT RATE Estimated 56.6 mL/min (>60); POTASSIUM 4.6 mmol/L (3.5-5.1); PROTEIN TOTAL SERUM 8.1 g/dL (6.0-8.3)
[2017-03-08 10:08] LABS: BETA HYDROXYBUTYRATE 10.94 MMOL/L (0.02-0.27)
[2017-03-08 11:20] LABS: AMYLASE 6 U/L (0-46); LIPASE 11 U/L (22-51)
[2017-03-08 12:20] LABS: MAGNESIUM 1.8 mg/dL (1.6-3.0); PHOSPHOROUS 4.2 mg/dL (2.5-4.6)
[2017-03-08 12:46] LABS: THYROID STIMULATING HORMONE 0.46 uIU/ml (0.34-5.60)
[2017-03-08 12:52] LABS: FREE THYROXIN (T4) 1.62 ng/dL (0.58-1.64)
[2017-03-08 14:29] LABS: URINE SOURCE CLEAN CATCH
[2017-03-08 14:47] LABS: URINE APPEARANCE CLEAR; URINE BILIRUBIN NEG (NEG); URINE BLOOD NEG (NEG); URINE COLOR YELLOW; URINE GLUCOSE >1000 MG/DL (NEG); URINE KETONE 3+ (NEG); URINE LEUKOCYTE ESTERASE NEG (NEG); URINE NITRATE NEG (NEG); URINE PROTEIN 1+ (NEG); URINE SPECIFIC GRAVITY 1.023 (1.003-1.035); URINE UROBILINOGEN 0.2 MG/DL (NEG)
[2017-03-08 14:50] LABS: URBCS1 AUWI 0-2 /[HPF] (0-2); URINE BACTERIA AUWI NEG (NEGATIVE); URINE SQUAMOUS EPITHELIAL CELL NONE SEEN /[HPF]; UWBCS1 AUWI 0-2 (0-5)
[2017-03-08 14:55] LABS: CULTURE INDICATED? NO
[2017-03-08 14:58] LABS: AMPHETAMINE POS (NEG); BARBITURATES NEG (NEG); BENZODIAZEPINES NEG (NEG); COCAINE NEG (NEG); MARIJUANA NEG (NEG); OPIATES NEG (NEG); TRICYCLIC ANTIDEPRESSANTS NEG (NEG); U METHADONE NEG (NEG)
[2017-03-08 14:59] LABS: CALCIUM SERUM 7.7 mg/dL (8.4-10.2); CREATININE SERUM 1.2 mg/dL (0.6-1.4); GLOM FILT RATE Estimated 80.1 mL/min (>60); POTASSIUM 3.9 mmol/L (3.5-5.1)
[2017-03-08 21:09] LABS: BUN/CREATININE RATIO 16.66; CALCIUM SERUM 7.6 mg/dL (8.4-10.2); CREATININE SERUM 0.9 mg/dL (0.6-1.4); GLOM FILT RATE Estimated 113.4 mL/min (>60); POTASSIUM 3.5 mmol/L (3.5-5.1)
[2017-03-09 03:11] LABS: CALCIUM SERUM 7.6 mg/dL (8.4-10.2); CREATININE SERUM 0.8 mg/dL (0.6-1.4); GLOM FILT RATE Estimated 119.1 mL/min (>60); POTASSIUM 3.3 mmol/L (3.5-5.1)
[2017-03-09 09:13] LABS: CALCIUM SERUM 7.8 mg/dL (8.4-10.2); CREATININE SERUM 0.8 mg/dL (0.6-1.4); GLOM FILT RATE Estimated 119.1 mL/min (>60); PHOSPHOROUS 1.4 mg/dL (2.5-4.6); POTASSIUM 3.2 mmol/L (3.5-5.1)
[2017-03-09 10:49] LABS: ARTERIAL BLOOD GAS PCO2 <10.7 mmHg (35.0-45.0)
[2017-03-10 08:20] LABS: MAGNESIUM 1.6 mg/dL (1.6-3.0); POTASSIUM 3.8 mmol/L (3.5-5.1)
[2017-03-11 07:17] LABS: MAGNESIUM 1.7 mg/dL (1.6-3.0); POTASSIUM 3.7 mmol/L (3.5-5.1)
[2017-03-12 07:13] LABS: POTASSIUM 4.1 mmol/L (3.5-5.1)
[2017-03-12 14:39] LABS: CD4 % (PNL) 40 % (30-61); HIV1 LOG COPIES/ML <1.30 (<1.30); HIV1COPIES/ML <20 (<20)
[2017-03-13 05:10] LABS: HEMATOCRIT 36.4 % (38.0-50.0); HEMOGLOBIN 12.2 gm/dL (13.0-16.0); MEAN CELL VOLUME 81.5 FL (83-96); MEAN CORPUSCULAR HEMOGLOBIN 27.3 PG (28-34); MEAN CORPUSCULAR HGB CONC 33.5 g/dL (30-36); MEAN PLATELET VOLUME 8.3 FL (6.5-11.5); RED BLOOD COUNT 4.47 X10e (3.90-5.60); RED CELL DISTRIBUTION WIDTH 14.6 % (11.0-15.5); WHITE BLOOD COUNT 7.6 X10e3 (4.0-10.5)
[2017-03-13 06:19] LABS: CALCIUM SERUM 8.7 mg/dL (8.4-10.2); CREATININE SERUM 1.2 mg/dL (0.6-1.4); GLOM FILT RATE Estimated 80.1 mL/min (>60); MAGNESIUM 1.8 mg/dL (1.6-3.0); POTASSIUM 4.6 mmol/L (3.5-5.1)
[2017-03-14 07:03] LABS: BUN/CREATININE RATIO 18.88; CALCIUM SERUM 8.5 mg/dL (8.4-10.2); CREATININE SERUM 0.9 mg/dL (0.6-1.4); GLOM FILT RATE Estimated 113.4 mL/min (>60); POTASSIUM 4.3 mmol/L (3.5-5.1)
[2017-03-15 08:31] LABS: POTASSIUM 4.9 mmol/L (3.5-5.1)
== END 2017-03-15 12:56 | DRG 638 ==
LOC: CED 07:28 → CEDOF 11:25 → C2A 11:25 → CED 11:44 → CEDOF 11:44 → CICCU3 13:52 → C2A 03-09 16:07
PROVIDERS: Emergency Medicine; Family Medicine; Internal Medicine
PROC: 02HV33Z Insertion of Infusion Device into Superior Vena Cava, Percutaneous Approach (ICD-10-PCS; principal; 2017-03-08)
PROC: B518YZA Fluoroscopy of Superior Vena Cava using Other Contrast, Guidance (ICD-10-PCS; 2017-03-08)
PROC: B548ZZA Ultrasonography of Superior Vena Cava, Guidance (ICD-10-PCS; 2017-03-08)
DX: E10.10 Type 1 diabetes mellitus with ketoacidosis without coma (principal); L02.414 Cutaneous abscess of left upper limb; N17.9 Acute kidney failure, unspecified; F33.2 Major depressive disorder, recurrent severe without psychotic features; E10.42 Type 1 diabetes mellitus with diabetic polyneuropathy; F15.20 Other stimulant dependence, uncomplicated; F11.20 Opioid dependence, uncomplicated; B95.62 Methicillin resistant Staphylococcus aureus infection as the cause of diseases classified elsewhere; F90.9 Attention-deficit hyperactivity disorder, unspecified type; E83.39 Other disorders of phosphorus metabolism; B19.20 Unspecified viral hepatitis C without hepatic coma; Z90.49 Acquired absence of other specified parts of digestive tract; Z83.3 Family history of diabetes mellitus; F17.210 Nicotine dependence, cigarettes, uncomplicated; Z79.4 Long term (current) use of insulin; Z59.0 Homelessness; F10.20 Alcohol dependence, uncomplicated
CPT/HCPCS: 36415; 36600; 71010; 76937; 77001; 80048; 80076; 80202; 80307; 81003; 82010; 82150; 82803; 82947; 83036; 83690; 83735; 84100; 84132; 84439; 84443; 85025; 85027; 86361; 86592; 87040; 87070; 87075; 87077; 87186; 87205; 87536; 90732; 93005; 96361; 96374; 99291; C1751; C9113; G0009; G0480; J1815; J1885; J2250; J2270; J2405; J2543; J2550; J2765; J3370; J3475